=== PATIENT | female | born 1980 | race Caucasian/White ===

== ENCOUNTER → 2017-10-08 | Outpatient (CLI) | payer SELFPAY ==
[~2017-10-08] MED LIST: CETI10CA PO; HYDR-1231 PO; IBUP-1773 PO; OXYC-471 PO; POLY17PO23 PO; PREN-148 PO
--- NOTE | 2017-10-08 19:29 | Diagnostic Imaging Report ---
INDICATION: Size and dates. TECHNIQUE: Multiple real-time grayscale images were obtained over the gravid uterus. FINDINGS: There are no prior studies available for comparison. There is a single live fetus in cephalic presentation. heart motion is noted and a rate of 156 bpm is recorded. There are no obvious abnormalities identified; however, it may prove worthwhile to have a short-term (4-6 weeks) follow-up exam for a more sensitive evaluation of the anatomy. The placenta is anterior and there is no previa. The amniotic fluid volume is within normal limits. The growth parameters are fairly uniform. IMPRESSION: 1. There is a single live fetus of approximately 16 weeks 3 days gestation +/- 1 week. The EDC is March 22, 2018. 2. There are no obvious abnormalities identified. Recommendations as above. 3. The growth parameters are fairly uniform. Dictated on workstation # [id number]
== END ==
LOC: RAD 13:32
PROVIDERS: ATTEND Family Medicine
DX: Z34.82 Encounter for supervision of other normal pregnancy, second trimester (principal); Z3A.16 16 weeks gestation of pregnancy
CPT/HCPCS: 76805

== ENCOUNTER 2017-12-24 18:07 | Emergency (ER) | payer SELFPAY ==
[~2017-12-24] VITALS: Ht 154.9 cm; Wt 77.6 kg
--- OUTSIDE RECORDS SUMMARY | 2017-12-24 18:25 | XMS REPORT | Continuity of Care Document ---
Author Author [facility] Address Unknown Phone Unavailable Allergies Active Description Code Type Severity Reaction Onset Reported/Identified Relationship to Patient Clinical Status Yes No Known Drug Allergies [id number] Drug Allergy Unknown N/A 01/27/2014 Medications There is no data. Problems Date Dx Coded Attending Type Code Diagnosis Diagnosed By 07/06/2010 034.0 Streptococcal Sore Throat 07/06/2010 DEVYN MENDEZ STIVEN K 034.0 Streptococcal Sore Throat 07/06/2010 SHEPARD DO STIVEN K 034.0 Streptococcal Sore Throat 03/23/2011 599.0 Urinary Tract Infection Site Not Specified 03/23/2011 599.70 Hematuria Unspecified 03/23/2011 788.41 Urinary Frequency 03/23/2011 SHEPARD DO, STIVEN K 599.0 Urinary Tract Infection Site Not Specified 03/23/2011 SHEPARD DO, STIVEN K 599.70 Hematuria Unspecified 03/23/2011 SHEPARD DO, STIVEN K 788.41 Urinary Frequency 03/23/2011 SHEPARD DO STIVEN K 599.0 Urinary Tract Infection Site Not Specified 03/23/2011 SHEPARD DO STIVEN K 599.70 Hematuria Unspecified 03/23/2011 SHEPARD DO STIVEN K 788.41 Urinary Frequency 04/19/2012 784.0 HEADACHE 04/19/2012 V70.0 ROUTINE GENERAL MEDICAL EXAMINATION AT A HEALTH CARE FACILITY 04/19/2012 SHEPARD DO STIVEN K 784.0 HEADACHE 04/19/2012 SHEPARD DO, STIVEN K V70.0 ROUTINE GENERAL MEDICAL EXAMINATION AT A HEALTH CARE FACILITY 04/19/2012 SHEPARD DO STIVEN K 784.0 HEADACHE 04/19/2012 SHEPARD DO STIVEN K V70.0 ROUTINE GENERAL MEDICAL EXAMINATION AT A HEALTH CARE FACILITY 03/27/2013 466.0 BRONCHITIS, ACUTE 03/27/2013 SHEPARD RAFAEL MENDEZA K 466.0 BRONCHITIS, ACUTE 03/27/2013 SHEPARD DO STIVEN K 466.0 BRONCHITIS, ACUTE 2013 STIVEN SHEPARD DO K 461.9 SINUSITIS ACUTE 2013 STIVEN SHEPARD DO K 493.90 ASTHMA UNSPECIFIED 2013 STIVEN SHEPARD DO K 461.9 SINUSITIS ACUTE 2013 STIVEN SHEPARD DO K 493.90 ASTHMA UNSPECIFIED 07/17/2013 STIVEN SHEPARD DO K 382.9 OTITIS MEDIA 07/17/2013 DEVYN MENDEZ STIVEN K 786.2 COUGH 01/27/2014 ASHLEIGH JENNINGS POWER PRESS TENDER Ot 786.50 CHEST PAIN NOS 01/27/2014 ASHLEIGH JENNINGS POWER PRESS TENDER Ot 789.06 ABDOMINAL PAIN, EPIGASTRIC 05/12/2015 JUAN TATE, ALEXANDER Sharpe Ot 646.83 PREG COMPL NEC-ANTEPART 05/12/2015 ALEXANDER MARTINEZ MD Ot 789.00 ABDOMINAL PAIN, UNSPECIFIED SITE 08/15/2015 DEVYN MENDEZ STIVEN Kiko Ot O62.3 PRECIPITATE LABOR 08/15/2015 SHEPARD STIVEN K Ot O70.2 THIRD DEGREE PERINEAL LACERATION DURING 08/15/2015 DEVYN MENDEZ STIVEN Kiko Ot Z37.0 SINGLE LIVE 08/15/2015 DEVYN MENDEZ STIVEN Kiko Ot Z3A.40 40 WEEKS GESTATION OF 08/24/2015 ALEXANDER MARTINEZ MD Ot V22.1 08/24/2015 ALEXANDER MARTINEZ MD Ot V22.1 08/24/2015 ALEXANDER MARTINEZ MD Ot V22.1 10/26/2015 JAMA PHAM APRN Ot V22.1 10/26/2015 ALEXANDER MARTINEZ MD Ot V22.1 02/09/2016 JAMA PHAM APRN Ot V22.1 SUPERVIS OTH NORMAL PREG 02/09/2016 ALEXANDER MARTINEZ MD Ot V22.1 SUPERVIS OTH NORMAL PREG 02/09/2016 ALEXANDER MARTINEZ MD Ot V22.1 SUPERVIS OTH NORMAL PREG 10/08/2017 JAMA PHAM APRN Ot V22.1 SUPERVIS OTH NORMAL PREG 10/08/2017 ALEXANDER MARTINEZ MD Ot V22.1 SUPERVIS OTH NORMAL PREG 10/09/2017 JACKY MCGUIRE MD Ot Z34.82 ENCOUNTER FOR SUPRVSN OF NORMAL PREGNANC 10/09/2017 SHAYLA TATE, JACKY Baumann Ot Z3A.16 16 WEEKS GESTATION OF Procedures Code [place] [address] ROUTINE VENIPUNCTURE 07/17/2013 3681770 GFR CALC (RESULT ONLY) 07/17/2013 77054 CMP 07/17/2013 74688 MYCOPLASMA ANTIBODY 07/18/2013 2DRH2CS REPAIR ANAL SPHINCTER, PERCUTANEOUS APPR 08/14/2015 [id number] DELIVERY OF PRODUCTS OF CONCEPTION, EXTE 08/14/2015 Results There is no data. Encounters ACCT No. Visit Date/Time Discharge Status Pt. Type Provider Facility Loc./Unit Complaint [id number] 07/17/2013 10:25:00 07/17/2013 23:59:59 CLS Outpatient STIVEN SHEPARD DO [id number] 2013 10:45:00 2013 23:59:59 CLS Outpatient STIVEN SHEPARD DO [id number] 03/27/2013 16:09:00 Document Registration [id number] 10/08/2017 13:32:00 10/08/2017 23:59:59 CLS Outpatient JACKY MCGUIRE MD [facility] RAD Z34.80 NORMAL IN MULTIGRAVIDA [id number] 08/14/2015 00:01:00 08/15/2015 14:52:00 DIS Inpatient STIVEN SHEPARD DO [facility] LDRP VAG DELIVERY [id number] 05/11/2015 23:38:00 05/12/2015 10:05:00 DIS Outpatient ALEXANDER MARTINEZ MD [facility] WSo ABD PAIN [id number] 04/21/2015 10:26:00 04/21/2015 23:59:59 CLS Outpatient ALEXANDER MARTINEZ MD [facility] RAD ANATOMY [id number] 03/11/2015 12:05:00 03/11/2015 23:59:59 CLS Outpatient JAMA PHAM APRN [facility] RAD DATING [id number] 01/27/2014 17:34:00 01/27/2014 20:25:00 DIS Emergency ASHLEIGH JENNINGS POWER PRESS TENDER [facility] ER CHEST PAIN, L SIDE PAIN
[2017-12-24 18:54] LABS: BASOPHILS % (AUTO) 0 % (0-10); EOSINOPHILS # (AUTO) 0.7 10^3/uL (0.0-0.3); EOSINOPHILS % (AUTO) 5 % (0-10); HEMATOCRIT 34 % (35-52); HEMOGLOBIN 11.4 G/DL (11.5-16.0); LYMPHOCYTES # (AUTO) 2.4 X 10^3 (1.0-4.0); LYMPHOCYTES % (AUTO) 17 % (12-44); MEAN CORPUSCULAR HEMOGLOBIN 29 PG (25-34); MEAN CORPUSCULAR HGB CONC 34 G/DL (32-36); MEAN CORPUSCULAR VOLUME 85 FL (80-99); MEAN PLATELET VOLUME 9.6 FL (7.4-10.4); MONOCYTES # (AUTO) 0.7 X 10^3 (0.0-1.0); MONOCYTES % (AUTO) 5 % (0-12); NEUTROPHILS # (AUTO) 10.4 X 10^3 (1.8-7.8); NEUTROPHILS % (AUTO) 73 % (42-75); PLATELET COUNT 319 10^3/uL (130-400); RED BLOOD COUNT 3.97 10^6/uL (4.35-5.85); RED CELL DISTRIBUTION WIDTH 13.2 % (10.0-14.5); WHITE BLOOD COUNT 14.3 10^3/uL (4.3-11.0)
--- NOTE | 2017-12-24 18:56 | ED Chest Pain ---
General Chief Complaint: Chest Pain Stated Complaint: 26W OB: CP, L SHOULDER AND ARM PAIN Nursing Triage Note: pt reports l sided cp that radiate to her neck and l arm starting at 1800. pt is aprox 26 weeks preg. Nursing Sepsis Screen: No Definite Risk Source: patient Exam Limitations: no limitations History of Present Illness Date Seen by Provider: December 24, 2017 Time Seen by Provider: 18:40 Initial Comments PT ARRIVES VIA POV FROM HOME C/O LEFT UPPER CHEST PAIN--BEGAN 1 HOUR AGO, WHILE LAYING DOWN, RESOLVED JUST PRIOR TO ARRIVAL. HAS NOT TAKEN ANYTHING FOR PAIN PT IS 26 WEEKS , NO PROBLEMS WITH . LAST OB VISIT WITH DR. MCGUIRE WAS 12/05/17 PT HAS HAD FEELING OF SHORTNESS OF BREATH SINCE SHE BECAME AND IS NOT OCCURRING NOW PT HAS HISTORY OF ASTHMA, BUT HAS NOT HAD AN INHALER, AND NO WHEEZING NO PALPITATIONS NO DIZZINESS NO SWEATS HAS OCCASIONAL MILD SWELLING OF LEGS/ FEET, BUT NOT TODAY NO COUGH, FEVER OR RECENT ILLNESS HAS HAD SEASONAL ALLERGIES AND TAKES AYLEEN--HAS BEEN SNEEZING ALOT NO NAUSEA/VOMITING OR ABDOMINAL PAIN --HAS EATEN BREAKFAST AND LUNCH, BUT NOT DINNER, YET. NO VAGINAL BLEEDING OR DISCHARGE AB0 OB/PCP: DR. MCGUIRE AND [facility] Allergies and Home Medications Allergies Coded Allergies: No Known Drug Allergies (Unverified , 01/27/14) Home Medications Ibuprofen 600 Mg Tablet, 600 MG PO Q6H Prescribed by: STIVEN SHEPARD on 08/15/15 1121 Oxycodone HCl/Acetaminophen 1 Each Tablet, 1-2 TAB PO Q3H PRN for MODERATE TO SEVERE PAIN Prescribed by: STIVEN SHEPARD on 08/15/15 1121 Polyethylene Glycol 3350 17 Gm Powd.pack, 17 GM PO DAILY Prescribed by: STIVEN SHEPARD on 08/15/15 1121 Vit #76/Iron,Carb/FA 1 Each Tablet, 1 EACH PO DAILY, (Reported) Patient Home Medication List Home Medication List Reviewed: Yes Review of Systems Constitutional: no symptoms reported; No chills, No diaphoresis, No dizziness, No fever Respiratory: See HPI; Denies Cough, Denies Orthopnea; Shortness of Air Cardiovascular: See HPI, Chest Pain, Edema (PER HPI); Denies Irregular Heart Rate, Denies Lightheadedness, Denies Palpitations, Denies Syncope Gastrointestinal: No Symptoms Reported; Denies Abdominal Pain, Denies Nausea, Denies Vomiting Genitourinary: No Symptoms Reported; Denies Burning, Denies Flank Pain, Denies Pain Musculoskeletal: no symptoms reported; No back pain Skin: no symptoms reported Psychiatric/Neurological: No Symptoms Reported Endocrine: No Symptoms Reported Hematologic/Lymphatic: No Symptoms Reported Past Cauffww-Upuoaj-Gaydlm Hx Patient Social History Alcohol Use: Denies Use Recreational Drug Use: No Smoking Status: Never a Smoker Recent Foreign Travel: No Contact w/Someone Who Travel: No Recent Infectious Disease Expo: No Physical Abuse: No Sexual Abuse: No Mistreated: No Fear: No Immunizations Up To Date Tetanus Booster (TDap): Unknown Date of Influenza Vaccine: Jul 28, 2015 Past Medical History Surgeries: No Respiratory: Yes (HAS NOT HAD AN INHALER FOR A LONG TIME) Asthma Currently Using CPAP: No Currently Using BIPAP: No Cardiac: Yes (MURMUR A SMALL CHILD) Neurological: No : Yes Expected Date of Delivery: Apr 03, 2018 Hx : 4 Hx Para: 3 Hx Total # of Abortions (Sp): 0 Reproductive Disorders: No Sexually Transmitted Disease: No HIV/AIDS: No Genitourinary: No Gastrointestinal: No Musculoskeletal: No Endocrine: No HEENT: No Cancer: No Psychosocial: No Nursing Suicide Risk Score: 0 Integumentary: No Blood Disorders: No Adverse Reaction/Blood Tranf: No Family Medical History Diabetes mellitus (Mother) Hypertension (Mother) Physical Exam Vital Signs Vital Signs - First Documented 12/24/17 18:40 Temp 98.1 Pulse 73 Resp 18 B/P (MAP) 122/80 (94) Pulse Ox 100 O2 Delivery Room Air Capillary Refill : Less Than 3 Seconds General Appearance: WD/WN, Other (DOES NOT APPEAR TO BE IN ANY DISCOMFORT ) HEENT: PERRL/EOMI Neck: Full Range of Motion, Normal Inspection, Non Tender, Supple; No Carotid Bruit, No JVD Respiratory: Normal Breath Sounds, No Accessory Muscle Use, No Respiratory Distress, Other (LEFT UPPER CHEST VERY TENDER TO PALPATION--PALPATION REPRODUCES SYMPTOMS) Cardiovascular: Regular Rate, Rhythm, No Edema, No JVD, No Murmur, Normal Peripheral Pulses Gastrointestinal: Normal Bowel Sounds, No Organomegaly, No Pulsatile Mass, Non Tender, Soft Extremity: Normal Capillary Refill, Normal Inspection, Normal Range of Motion, Non Tender, No Calf Tenderness, No Pedal Edema Neurologic/Psychiatric: Alert, Oriented x3, No Motor/Sensory Deficits, Normal Mood/Affect, technical proposal writer II-XII Norm as Tested Skin: Normal Color, Warm/Dry; No Rash Progress/Results/Core Measures Results/Orders Lab Results Laboratory Tests Test 12/24/17 18:45 12/24/17 19:07 12/24/17 19:44 Range/Units White Blood Count 14.3 H 4.3-11.0 10^3/uL Red Blood Count 3.97 L 4.35-5.85 10^6/uL Hemoglobin 11.4 L 11.5-16.0 G/DL Hematocrit 34 L 35-52 % Mean Corpuscular Volume 85 80-99 FL Mean Corpuscular Hemoglobin 29 25-34 PG Mean Corpuscular Hemoglobin Concent 34 32-36 G/DL Red Cell Distribution Width 13.2 10.0-14.5 % Platelet Count 319 130-400 10^3/uL Mean Platelet Volume 9.6 7.4-10.4 FL Neutrophils (%) (Auto) 73 42-75 % Lymphocytes (%) (Auto) 17 12-44 % Monocytes (%) (Auto) 5 0-12 % Eosinophils (%) (Auto) 5 0-10 % Basophils (%) (Auto) 0 0-10 % Neutrophils # (Auto) 10.4 H 1.8-7.8 X 10^3 Lymphocytes # (Auto) 2.4 1.0-4.0 X 10^3 Monocytes # (Auto) 0.7 0.0-1.0 X 10^3 Eosinophils # (Auto) 0.7 H 0.0-0.3 10^3/uL Basophils # (Auto) 0.0 0.0-0.1 10^3/uL Neutrophils % (Manual) 67 % Lymphocytes % (Manual) 20 % Monocytes % (Manual) 5 % Eosinophils % (Manual) 8 % Basophils % (Manual) 0 % Band Neutrophils 0 % Blood Morphology Comment NORMAL Sodium Level 137 135-145 MMOL/L Potassium Level 3.9 3.6-5.0 MMOL/L Chloride Level 108 H 98-107 MMOL/L Carbon Dioxide Level 19 L 21-32 MMOL/L Anion Gap 10 5-14 MMOL/L Blood Urea Nitrogen 5 L 7-18 MG/DL Creatinine 0.57 L 0.60-1.30 MG/DL Estimat Glomerular Filtration Rate > 60 BUN/Creatinine Ratio 9 Glucose Level 77 70-105 MG/DL Calcium Level 9.1 8.5-10.1 MG/DL Magnesium Level 2.0 1.8-2.4 MG/DL Total Bilirubin 0.2 0.1-1.0 MG/DL Aspartate Amino Transf (AST/SGOT) 16 5-34 U/L Alanine Aminotransferase (ALT/SGPT) 7 0-55 U/L Alkaline Phosphatase 67 40-136 U/L Troponin I < 0.30 <0.30 NG/ML Total Protein 7.8 6.4-8.2 GM/DL Albumin 3.5 3.2-4.5 GM/DL Amylase Level 277 H 25-125 U/L Lipase 29 8-78 U/L Prothrombin Time 13.8 12.2-14.7 SEC INR Comment 1.1 0.8-1.4 Activated Partial Thromboplast Time 29 24-35 SEC Urine Color YELLOW Urine Clarity CLEAR Urine pH 6 5-9 Urine Specific Kennard 1.010 L 1.016-1.022 Urine Protein NEGATIVE NEGATIVE Urine Glucose (UA) NEGATIVE NEGATIVE Urine Ketones NEGATIVE NEGATIVE Urine Nitrite NEGATIVE NEGATIVE Urine Bilirubin NEGATIVE NEGATIVE Urine Urobilinogen NORMAL NORMAL MG/DL Urine Leukocyte Esterase 1+ H NEGATIVE Urine RBC (Auto) 2+ H NEGATIVE Urine RBC RARE /HPF Urine WBC 0-2 /HPF Urine Squamous Epithelial Cells 2-5 /HPF Urine Crystals NONE /LPF Urine Bacteria TRACE /HPF Urine Casts NONE /LPF Urine Mucus NEGATIVE /LPF Urine Culture Indicated NO My Orders Orders - CHON AG DO Saline Lock/Iv-Start (12/24/17 18:43) Ekg Tracing (12/24/17 18:43) Heart Tones (12/24/17 18:43) Monitor-Rhythm Ecg Trace Only (12/24/17 18:43) Amylase (12/24/17 18:43) Cbc With Automated Diff (12/24/17 18:43) Comprehensive Metabolic Panel (12/24/17 18:43) Lipase (12/24/17 18:43) Magnesium (12/24/17 18:43) Protime With Inr (12/24/17 18:43) Partial Thromboplastin Time (12/24/17 18:43) Troponin I (12/24/17 18:43) Ua Culture If Indicated (12/24/17 18:43) Manual Differential (12/24/17 18:45) Vital Signs/I&O 12/24/17 12/24/17 12/24/17 18:40 18:40 20:13 Temp 98.1 Pulse 73 80 Resp 18 24 B/P (MAP) 122/80 (94) 105/82 Pulse Ox 100 100 O2 Delivery Room Air Blood Pressure Mean: 94 Progress Progress Note : Progress Note PAIN OR ANY OTHER SYMPTOMS DURING ER STAY FHR 140 Initial ECG Impression Date: December 24, 2017 Initial ECG Impression Time: 19:00 Initial ECG Rate: 77 Initial ECG Rhythm: Normal Sinus Initial ECG Impression: Normal Initial ECG Comparisson: No Previous ECG Available Departure Impression Primary Impression: Left-sided chest wall pain Additional Impression: 26 weeks gestation of Disposition: 01 HOME, SELF-CARE Condition: Improved Departure-Patient Inst. Referrals: JACKY MCGUIRE MD (PCP/Family) Primary Care Physician Patient Instructions: Chest Pain That Is Not Caused by the Heart (DC) Add. Discharge Instructions: TAKE TYLENOL 1-2 PILLS EVERY 4-6 HOURS NEEDED FOR PAIN FOLLOW UP WITH DR. MCGUIRE IN 2-3 DAYS IF NO BETTER, OR SOONER IF WORSE All discharge instructions reviewed with patient and/or family. Voiced understanding. Images Torso/Trunk 1 - Moderate, Tenderness CHON AG DO December 24, 2017 18:56
[2017-12-24 19:12] LABS: BAND NEUTROPHILS 0 %; BASOPHILS % (MANUAL) 0 %; EOSINOPHILS % (MANUAL) 8 %; LYMPHOCYTES % (MANUAL) 20 %; MONOCYTES % (MANUAL) 5 %; NEUTROPHILS % (MANUAL) 67 %; RBC MORPH NORMAL
[2017-12-24 19:13] LABS: ALANINE AMINOTRANSFERASE 7 U/L (0-55); ALBUMIN 3.5 GM/DL (3.2-4.5); ALKALINE PHOSPHATASE 67 U/L (40-136); AMYLASE 277 U/L (25-125); BILIRUBIN,TOTAL 0.2 MG/DL (0.1-1.0); BUN/CREATININE RATIO 9; CALCIUM 9.1 MG/DL (8.5-10.1); CARBON DIOXIDE 19 MMOL/L (21-32); CHLORIDE 108 MMOL/L (98-107); CREATININE SERUM 0.57 MG/DL (0.60-1.30); GFR ESTIMATED > 60; GLUCOSE 77 MG/DL (70-105); LIPASE 29 U/L (8-78); POTASSIUM 3.9 MMOL/L (3.6-5.0); SODIUM 137 MMOL/L (135-145); TOTAL PROTEIN 7.8 GM/DL (6.4-8.2)
[2017-12-24 19:25] LABS: INR 1.1 (0.8-1.4); PROTHROMBIN TIME PATIENT 13.8 SEC (12.2-14.7)
[2017-12-24 19:50] LABS: BILIRUBIN,URINE NEGATIVE (NEGATIVE); CLARITY,URINE CLEAR; COLOR,URINE YELLOW; GLUCOSE, URINE (UA) NEGATIVE (NEGATIVE); KETONES,URINE NEGATIVE (NEGATIVE); LEUKOCYTE ESTERASE ,URINE 1+ (NEGATIVE); NITRITE,URINE NEGATIVE (NEGATIVE); PH,URINE 6 (5-9); PROTEIN,URINE NEGATIVE (NEGATIVE); UROBILINOGEN,URINE NORMAL (NORMAL)
[2017-12-24 19:57] LABS: BACTERIA,URINE TRACE /HPF; RBC,URINE RARE /HPF; WBC,URINE 0-2 /HPF
[2017-12-24 20:13] VITALS: BP 105/82
== END 2017-12-24 20:14 | disposition home or self-care (01) ==
LOC: EDUNIT# 18:07 → ER 18:10
DX: O99.89 Other specified diseases and conditions complicating pregnancy, childbirth and the puerperium (principal); R07.89 Other chest pain; O99.512 Diseases of the respiratory system complicating pregnancy, second trimester; J45.909 Unspecified asthma, uncomplicated; Z3A.26 26 weeks gestation of pregnancy
CPT/HCPCS: 36415; 80053; 81000; 82150; 83690; 83735; 84484; 85007; 85027; 85610; 85730; 93005; 93041

== ENCOUNTER → 2018-02-18 | Outpatient (CLI) | payer SELFPAY | LOC: LAB 10:50 | PROVIDERS: ATTEND Family Medicine | DX: Z34.93 Encounter for supervision of normal pregnancy, unspecified, third trimester (principal) ==

== ENCOUNTER → 2018-02-20 | Outpatient (CLI) | payer SELFPAY | LOC: LAB 10:41 | PROVIDERS: ATTEND Family Medicine | DX: Z34.93 Encounter for supervision of normal pregnancy, unspecified, third trimester (principal) | CPT/HCPCS: 82962 ==

== ENCOUNTER 2018-03-12 00:50 | Inpatient (IN) | payer OTHER ==
[2018-03-12] VITALS (31 sets, daily range): BP systolic 100–180; BP diastolic 67–114
[~2018-03-12] VITALS: Ht 152.4 cm; Wt 84.0 kg
[2018-03-12] MEDS ORDERED: D5 LR IV SOLUTION 1,000 ML IV SCH (01:21)
[2018-03-12] MEDS ORDERED: MEPIVACAINE (CARBOCAINE) 2% 50 ML VIAL INJ PRN (01:30)
[2018-03-12 02:17] LABS: BASOPHILS % (AUTO) 0 % (0-10); EOSINOPHILS # (AUTO) 0.1 10^3/uL (0.0-0.3); EOSINOPHILS % (AUTO) 1 % (0-10); HEMATOCRIT 36 % (35-52); LYMPHOCYTES # (AUTO) 2.2 X 10^3 (1.0-4.0); LYMPHOCYTES % (AUTO) 15 % (12-44); MEAN CORPUSCULAR HEMOGLOBIN 28 PG (25-34); MEAN CORPUSCULAR HGB CONC 34 G/DL (32-36); MEAN CORPUSCULAR VOLUME 83 FL (80-99); MEAN PLATELET VOLUME 10.7 FL (7.4-10.4); MONOCYTES # (AUTO) 0.9 X 10^3 (0.0-1.0); MONOCYTES % (AUTO) 6 % (0-12); NEUTROPHILS # (AUTO) 10.9 X 10^3 (1.8-7.8); NEUTROPHILS % (AUTO) 77 % (42-75); PLATELET COUNT 257 10^3/uL (130-400); RED BLOOD COUNT 4.29 10^6/uL (4.35-5.85); WHITE BLOOD COUNT 14.1 10^3/uL (4.3-11.0)
[2018-03-12] MEDS ORDERED: OXYTOCIN/NORMAL SALINE 500 ML IV ONE (04:54)
--- NOTE | 2018-03-12 05:08 | History & Physical-OB ---
OB - Chief Complaint & HPI Date/Time Date of Admission: Date of Admission: Mar 12, 2018 at 01:34 Time Seen by Provider: 05:00 Chief Complaint/History OB-Reason for Admission/Chief: Onset of Labor Hx : 4 Hx Para: 3 Expected Date of Delivery: Mar 21, 2018 Gestational Age in Weeks: 38 Gestational Age in Days: 5 Admission Nurse Assessment Rev: Yes Allergies and Home Medications Allergies Coded Allergies: No Known Drug Allergies (Unverified , 01/27/14) Home Medications Ibuprofen 600 Mg Tablet, 600 MG PO Q6H Prescribed by: STIVEN SHEPARD on 08/15/15 1121 Oxycodone HCl/Acetaminophen 1 Each Tablet, 1-2 TAB PO Q3H PRN for MODERATE TO SEVERE PAIN Prescribed by: STIVEN SHEPARD on 08/15/15 1121 Polyethylene Glycol 3350 17 Gm Powd.pack, 17 GM PO DAILY Prescribed by: STIVEN SHEPARD on 08/15/15 1121 Vit #76/Iron,Carb/FA 1 Each Tablet, 1 EACH PO DAILY, (Reported) Patient Home Medication List Home Medication List Reviewed: Yes OB - History Hx of Present Care: Yes Ultrasounds: Normal mid trimester US Obstetrical Complications: None Medical Complications: None Obstetrical History Hx : 4 Hx Para: 3 Hx Total # of Abortions (Spona: 0 Hx Multiple Gestation: No Hx Stillbirth: No Hx Complication: No Hx Induced Hypertens: No Hx Maternal Gestational Diabet: No Delivery History Hx Dystocia: No Hx Large For Gestational Age I: No Hx Small for Gestational Age I: No Hx Section: No Hx Vaginal Delivery Post C-Sec: No Hx Blood Disorders: No Adverse Rxn to Tranfusion: No Patient Past Medical History denies PMH Social History/Family History HIV/AIDS: No Recent Infectious Disease Expo: No Sexually Transmitted Disease: No Alcohol Use: Denies Use Recreational Drug Use: No Immunizations Tetanus Booster (TDap): Unknown Date of Influenza Vaccine: Jul 28, 2015 OB - Admission Exam Physical Exam Vitals: Vital Signs 03/12/18 03/12/18 02:30 04:00 Temp 97.2 Pulse 75 Resp 18 B/P (MAP) 146/94 (111) O2 Delivery Room Air HEENT: Moist Membranes Heart: Rhythm Normal Abdomen: Gravid Cervical Dilatation: 8cm Effacement: 75% Membranes: Intact Heart Rate: 130's Accelerations: Accelerations Present Short Term Variability: Present Media Operator Variability: Average (6-25) Intensity: Moderate Labs Laboratory Tests Test 03/12/18 02:05 Range/Units White Blood Count 14.1 H 4.3-11.0 10^3/uL Red Blood Count 4.29 L 4.35-5.85 10^6/uL Hemoglobin 12.0 11.5-16.0 G/DL Hematocrit 36 35-52 % Mean Corpuscular Volume 83 80-99 FL Mean Corpuscular Hemoglobin 28 25-34 PG Mean Corpuscular Hemoglobin Concent 34 32-36 G/DL Red Cell Distribution Width 14.0 10.0-14.5 % Platelet Count 257 130-400 10^3/uL Mean Platelet Volume 10.7 H 7.4-10.4 FL Neutrophils (%) (Auto) 77 H 42-75 % Lymphocytes (%) (Auto) 15 12-44 % Monocytes (%) (Auto) 6 0-12 % Eosinophils (%) (Auto) 1 0-10 % Basophils (%) (Auto) 0 0-10 % Neutrophils # (Auto) 10.9 H 1.8-7.8 X 10^3 Lymphocytes # (Auto) 2.2 1.0-4.0 X 10^3 Monocytes # (Auto) 0.9 0.0-1.0 X 10^3 Eosinophils # (Auto) 0.1 0.0-0.3 10^3/uL Basophils # (Auto) 0.0 0.0-0.1 10^3/uL OB - Assessment/Plan/Diagnosis Assessment Assessment: active labor (at 38w5d) Admission Dx IUP at term 38w5d Admission Status: Inpatient Order (span 2 midnights) Reason for Inpatient Admission: L&D Plan Plan: Expectant Management JACKY MCGUIRE MD Mar 12, 2018 05:08
[2018-03-12] MEDS ORDERED: LIDOCAINE 1% INJ 20 ML 20 ML VIAL ONE (06:03)
[2018-03-12] MEDS: OXYTOCIN/NORMAL SALINE 500 ML IV SCH ×2 (06:15→08:09)
--- NOTE | 2018-03-12 06:37 | OB Labor & Delivery Record ---
L&D History Date of Service Date of Service: Mar 12, 2018 History Expected Date of Delivery: Mar 21, 2018 Gestational Age in Weeks: 38 Hx : 4 Hx Para: 3 Complications Events: Routine care Operative Indications (Cesarea: N/A-Vaginal Delivery Intrapartal Events: None (with increased maternal bp transient) L&D Stage1 Stage One Onset of Labor - Date: Mar 12, 2018 Onset of Labor - Time: 01:00 Monitors and Tracing Monitor Mode: External Heart Rate: 140 Monitor Accelerations: Uniform Monitor Decelerations: Variable Station: 0 Long-Term Variability: Average (6-10) Short Term Variability: Present Presentation: Vertex Vital Signs VS - Last 72 Hours, by Label 03/12/18 03/12/18 03/12/18 03/12/18 01:05 01:06 01:35 02:30 Temp 97.8 97.2 Pulse 88 78 74 Resp 18 18 18 B/P (MAP) 142/94 (110) 144/92 (109) 130/88 (102) 135/82 (99) O2 Delivery Room Air Room Air Room Air 03/12/18 03/12/18 03/12/18 03/12/18 03:00 03:15 03:30 03:45 Pulse 77 80 77 85 Resp 18 18 18 18 B/P (MAP) 149/85 (106) 148/88 (108) 137/84 (101) 139/94 (109) O2 Delivery Room Air Room Air Room Air Room Air 03/12/18 03/12/18 03/12/18 03/12/18 04:00 04:15 04:30 04:45 Temp 97.3 Pulse 75 83 83 79 Resp 18 18 18 18 B/P (MAP) 146/94 (111) 150/92 (111) 149/95 (113) 138/79 (98) O2 Delivery Room Air Room Air Room Air Room Air 03/12/18 03/12/18 05:15 05:16 Pulse 82 Resp 18 B/P (MAP) 174/95 (121) 165/101 (122) O2 Delivery Room Air Signs of Distress by FHT Signs of Distress no Rupture of Membranes Spontaneous Ruture of Membrane: No Amniotic Membrane Rupture Time: 0510 Amniotic Membrane Fluid Desc.: Clear L&D Stage2 Stage Two Stage II Date: Mar 12, 2018 Stage II Time: 06:10 Monitors and Tracing Monitor Mode: Internal Heart Rate: 140 Monitor Accelerations: Uniform Monitor Decelerations: Early Long-Term Variability: Average (6-10) Short Term Variability: Present Position: Left Occiput Anterior Presentation: Vertex Signs of Distress by FHT Signs of Distress no Cord Descript/Complications Cord Vessel Description: 3 Vessels Delivery Type Delivery Method: Spontaneous Vaginal Anterior Shoulder: Left Episiotomy/Perineal Laceration Laceraction(s)/Extensions: Yes Episiotomy Description: Periurethral Extnsion/lac, 1st degree Sutures Used: Vicryl Condition of Infant Delivery 1 minute Comment: 8 5 minute Comment: 9 Condition of Condition of : Living Exam: No Observed Abnormalities Resuscitation Resuscitation: N/A - Spontaneous Resp L&D Stage3 Stage Three Stage III Date: Mar 12, 2018 Stage III Time: 06:13 Pictocin Pitocin ml/hr: 125 Placenta Delivery Placenta Delivery: Spontaneous Delivery Summary Summary Estimated blood loss (mL): 200 Condition of Delivery Examined: Cervix Examined Post Hemorrhage: No Intervention Required none JACKY MCGUIRE MD Mar 12, 2018 06:37
[2018-03-12] MEDS ORDERED: MEASLES,MUMPS,RUBELLA 1 EA INJ SQ ONE (06:45)
[2018-03-12] MEDS ORDERED: HYDROcodone/APAP 5 MG/325 MG (LORTAB) TAB PO PRN (06:45)
[2018-03-12] MEDS ORDERED: TETANUS,DIPTH,PERTUSS P/F (BOOSTRIX) 0.5 ML VIAL IM ONE (06:45)
[2018-03-12] MEDS ORDERED: WITCH HAZEL(TUCKS) 40 EA JAR TOP PRN (06:45)
[2018-03-12] MEDS ORDERED: BENZOCAINE/MENTHOL (DERMOPLAST) 56 ML CAN TP PRN (06:45)
[2018-03-12] MEDS: IBUPROFEN 600 MG (MOTRIN) TAB PO SCH ×3 (07:40→20:23)
[2018-03-12] MEDS: CATHETER FLUSH 10 ML SYR IV SCH ×2 (22:16→22:19)
[2018-03-13] MEDS: IBUPROFEN 600 MG (MOTRIN) TAB PO SCH ×2 (02:31→08:43)
[2018-03-13 03:27] VITALS: BP 100/70
[2018-03-13 05:40] LABS: BASOPHILS % (AUTO) 0 % (0-10); EOSINOPHILS # (AUTO) 0.2 10^3/uL (0.0-0.3); EOSINOPHILS % (AUTO) 1 % (0-10); HEMATOCRIT 31 % (35-52); HEMOGLOBIN 10.6 G/DL (11.5-16.0); LYMPHOCYTES # (AUTO) 2.7 X 10^3 (1.0-4.0); LYMPHOCYTES % (AUTO) 18 % (12-44); MEAN CORPUSCULAR HEMOGLOBIN 29 PG (25-34); MEAN CORPUSCULAR HGB CONC 34 G/DL (32-36); MEAN CORPUSCULAR VOLUME 85 FL (80-99); MEAN PLATELET VOLUME 10.6 FL (7.4-10.4); MONOCYTES # (AUTO) 0.7 X 10^3 (0.0-1.0); MONOCYTES % (AUTO) 5 % (0-12); NEUTROPHILS % (AUTO) 75 % (42-75); PLATELET COUNT 250 10^3/uL (130-400); RED BLOOD COUNT 3.65 10^6/uL (4.35-5.85); RED CELL DISTRIBUTION WIDTH 13.7 % (10.0-14.5); WHITE BLOOD COUNT 14.6 10^3/uL (4.3-11.0)
[2018-03-13] MEDS: CATHETER FLUSH 10 ML SYR IV SCH (06:48)
--- NOTE | 2018-03-13 07:28 | Discharge Summary ---
Diagnosis/Chief Complaint Date of Admission Mar 12, 2018 at 01:34 Date of Discharge March 13, 2018 Admission Diagnosis Admission Diagnosis 1. IUP at 38w5d gestation Discharge Diagnosis 1. IUP at 38w5d gestation Chief Complaint/HPI Chief Complaint/HPI 37 yo G4now T4L4 female who presented to L&D in active labor in the am of March 12, 2018. Discharge Summary-OBS Procedures 1. 2. Repair of first degree perineal laceration Discharge Physical Examination Allergies: Coded Allergies: No Known Drug Allergies (Unverified , 01/27/14) Vitals & I&Os Vital Sign - Last 12Hours Date Time Temp Pulse Resp B/P (MAP) Pulse Ox O2 Delivery O2 Flow Rate FiO2 03/13/18 03:27 97.7 73 16 100/70 (80) 98 Room Air General Appearance: No Acute Distress Respiratory: Clear to Auscultation Cardiovascular: Regular Rate Abdominal: Soft (with uterus firm) Hospital Course Patient was admitted in the morning of March 12, 2018 in active labor. She was noted to be 8 cm dilated upon presentation. Patient was at 38 weeks 5 days gestation. Her membranes were intact at that time. Her care was uneventful. Following admission she underwent amniotomy with placement of scalp electrode. She quickly went on to completion and delivered a term viable female. received Apgars of 8 at 1 minute and 9 at 5 minutes. There was a first-degree perineal laceration which was repaired with Vicryl. Following delivery she underwent routine care orders. She had no complications during the remainder of hospital stay. Her hemoglobin in the morning of March 13 was noted to be 10.6 compared to 12.0 from admission. She had no complaints had no significant vaginal bleeding. She was ambulatory and tolerating regular diet. She was felt ready for dismissal during the late morning of March 13, 2018. She will follow up in 6 weeks. Labs Laboratory Tests 03/13/18 05:14: White Blood Count 14.6H, Red Blood Count 3.65L, Hemoglobin 10.6L, Hematocrit 31L , Mean Corpuscular Volume 85, Mean Corpuscular Hemoglobin 29, Mean Corpuscular Hemoglobin Concent 34, Red Cell Distribution Width 13.7, Platelet Count 250, Mean Platelet Volume 10.6H, Neutrophils (%) (Auto) 75, Lymphocytes (%) (Auto) 18 , Monocytes (%) (Auto) 5, Eosinophils (%) (Auto) 1, Basophils (%) (Auto) 0, Neutrophils # (Auto) 11.0H, Lymphocytes # (Auto) 2.7, Monocytes # (Auto) 0.7, Eosinophils # (Auto) 0.2, Basophils # (Auto) 0.0 Discharge Instructions to patient/family Please see electronic discharge instructions given to patient. Discharge Medications Reviewed and agree with Discharge Medication list on patient's Discharge Instruction sheet Clinical Quality Measures DVT/VTE Risk/Contraindication: Risk Factor Score Per Nursin RFS Level Per Nursing on Admit: 1=Low/No VTE PPX JACKY MCGUIRE MD Mar 13, 2018 07:28
--- NOTE | 2018-03-13 07:32 | Discharge Inst-Women's Service ---
Discharge Inst-Women's Serv Depart Medication/Instructions New, Converted or Re-Newed RX: Other (continue vitamin for 6 weeks) Consults/Follow Up Additional Follow Up: Yes (Dr Mcguire at [facility] in 6 weeks) Activity Driving Instructions: No Driving for 1 Week Nothing Inside Vagina: No [place] (for 6 weeks.) Return to The Hospital For: as below Symptoms to Report to : Bleeding Excessive, Pain Increased, Fever Over 101 Degrees F, Vaginal Discharge Foul For Any Problems or Questions: Contact Your Physician JACKY MCGUIRE MD Mar 13, 2018 07:32
[2018-03-13 08:00] VITALS: BP 112/68
[2018-03-13 12:00] VITALS: BP 110/72
== END 2018-03-13 14:25 | disposition home or self-care (01) | DRG 775 ==
LOC: LDRP 00:50 → WSo 00:50 → LDRP 01:34
PROVIDERS: ADMIT Family Medicine; ATTEND Family Medicine
PROC: 10E0XZZ Delivery of Products of Conception, External Approach (ICD-10-PCS; principal; 2018-03-12)
PROC: 0HQ9XZZ Repair Perineum Skin, External Approach (ICD-10-PCS; 2018-03-12)
DX: O70.0 First degree perineal laceration during delivery (principal); Z3A.38 38 weeks gestation of pregnancy; Z37.0 Single live birth
CPT/HCPCS: 36415; 85025; 86850; 86900; 86901; 99212

== ENCOUNTER 2020-11-04 14:30 | Observation (INO) | payer OTHER, MEDICAID ==
[2020-11-04 15:15] VITALS: BP 148/84
[2020-11-04 15:25] LABS: BILIRUBIN,URINE NEGATIVE (NEGATIVE); CLARITY,URINE CLEAR; COLOR,URINE YELLOW; GLUCOSE, URINE (UA) NEGATIVE (NEGATIVE); KETONES,URINE NEGATIVE (NEGATIVE); LEUKOCYTE ESTERASE ,URINE NEGATIVE (NEGATIVE); NITRITE,URINE NEGATIVE (NEGATIVE); PROTEIN,URINE 1+ (NEGATIVE)
[2020-11-04 15:37] LABS: BACTERIA,URINE NEGATIVE /HPF; SQUAMOUS EPITHELIAL CELL,UR 0-2 /HPF
[2020-11-04] MEDS ORDERED: oxyCODONE/APAP 10/325MG (PERCOCET 10) TABLET PO ONE ×2 (15:43→15:45)
[2020-11-04] MEDS ORDERED: NS IV 1000 ML 1,000 ML ONE (16:05)
[2020-11-04] MEDS ORDERED: NS IV 1000 ML 1,000 ML IV SCH (16:15)
[2020-11-04 17:45] VITALS: BP 183/96
[2020-11-04 17:48] VITALS: BP 170/91
[2020-11-04] MEDS ORDERED: D5 LR IV SOLUTION 1,000 ML IV ONE (17:57)
[2020-11-04 19:28] VITALS: BP 137/97
[2020-11-04 20:37] VITALS: BP 144/92
--- NOTE | 2020-11-04 21:36 | History & Physical-OB ---
OB - Chief Complaint & HPI Date/Time Date of Admission: Date of Admission: Date seen by a Provider: Nov 04, 2020 Time Seen by a Provider: 16:00 Chief Complaint/History OB-Reason for Admission/Chief: Hx : 5 Hx Para: 4 Expected Date of Delivery: Oct 11, 2020 Gestational Age in Weeks: 36 Gestational Age in Days: 1 History of Labs GBS positive by vaginal culture on October 05, 2020 Other Patient was found to have elevated systolic and diastolic blood pressure in the [facility] clinic today. She is sent to the hospital for laboratory and urine/protein creatinine ratio Allergies and Home Medications Allergies Coded Allergies: No Known Drug Allergies (Unverified , 01/27/14) Home Medications Vit #76/Iron,Carb/FA 1 Each Tablet, 1 EACH PO DAILY, (Reported) Patient Home Medication List Home Medication List Reviewed: Yes OB - History Hx of Present Care: Yes Ultrasounds: Normal mid trimester US (Only 1 ultrasound performed 28.6 weeks gestation) Obstetrical Complications: Other ( induced hypertension) Medical Complications: None Obstetrical History Hx : 5 Hx Para: 4 Hx Total # of Abortions (Spona: 0 Hx Multiple Gestation: No Hx Stillbirth: No Hx Complication: No Hx Induced Hypertens: No Hx Maternal Gestational Diabet: No Delivery History Hx Dystocia: No Hx Large For Gestational Age I: No Hx Small for Gestational Age I: No Hx Section: No Hx Vaginal Delivery Post C-Sec: No Hx Blood Disorders: No Adverse Rxn to Tranfusion: No Patient Past Medical History denies PMH Social History/Family History Alcohol Use: Denies Use Recreational Drug Use: No 2nd Hand Smoke Exposure: No Immunizations Tetanus Booster (TDap): Unknown Date of Influenza Vaccine: Jul 28, 2015 OB - Admission Exam Physical Exam Vitals: Vital Signs 11/04/20 11/04/20 15:15 17:48 Temp 37.1 Pulse 76 Resp 18 B/P (MAP) 170/91 (117) Pulse Ox 99 O2 Delivery Room Air HEENT: Moist Membranes Heart: Rhythm Normal Lungs: Clear Abdomen: Gravid Extremities: Normal Reflexes: Normal Labs Laboratory Tests Test 11/04/20 15:00 Range/Units Urine Color YELLOW Urine Clarity CLEAR Urine pH 6.0 5-9 Urine Specific [place] 1.025 H 1.016-1.022 Urine Protein 1+ H NEGATIVE Urine Glucose (UA) NEGATIVE NEGATIVE Urine Ketones NEGATIVE NEGATIVE Urine Nitrite NEGATIVE NEGATIVE Urine Bilirubin NEGATIVE NEGATIVE Urine Urobilinogen 1.0 < = 1.0 MG/DL Urine Leukocyte Esterase NEGATIVE NEGATIVE Urine RBC (Auto) 1+ H NEGATIVE Urine RBC 2-5 H /HPF Urine WBC NONE /HPF Urine Squamous Epithelial Cells 0-2 /HPF Urine Crystals NONE /LPF Urine Bacteria NEGATIVE /HPF Urine Casts NONE /LPF Urine Mucus NEGATIVE /LPF Urine Culture Indicated NO OB - Assessment/Plan/Diagnosis Assessment Assessment: observation Admission Dx 1. IUP at 36 weeks 2. PIH/mild pre-eclampsia 3. L sided abdominal pain. sensitive to touch ? urolithiasis possible. Admission Status: Observation Reason for Inpatient Admission: further monitoring of blood pressure. further monitoring of her L sided abdominal pain Plan Plan: Expectant Management JACKY MCGUIRE MD Nov 04, 2020 21:36
[2020-11-05] VITALS (7 sets, daily range): BP systolic 135–172; BP diastolic 85–93
[2020-11-05] MEDS ORDERED: oxyCODONE/APAP 10/325MG (PERCOCET 10) TABLET PO ONE (01:15)
[2020-11-05] MEDS: oxyCODONE/APAP 10/325MG (PERCOCET 10) TABLET PO PRN ×2 (01:23→09:52)
[2020-11-05] MEDS ORDERED: D5 LR IV SOLUTION 1,000 ML IV ONE (04:01)
[2020-11-05] MEDS ORDERED: D5 LR IV SOLUTION 1,000 ML IV SCH (04:15)
--- NOTE | 2020-11-05 07:12 | Progress Note ---
Subjective Subjective/Events-last exam Rested overnight. BP last evening borderline. L sided pain less. Objective Exam Last Set of Vital Signs Vital Signs Date Time Temp Pulse Resp B/P (MAP) Pulse Ox O2 Delivery O2 Flow Rate FiO2 11/05/20 07:00 37.0 63 18 136/86 (103) Room Air 11/04/20 20:37 99 Capillary Refill : Less Than 3 Seconds Lungs: Clear to Auscultation Heart: Regular Rate Other physical findings cervix: 1 1/2 cm dilated, 50%, vtx Results/Procedures Lab Laboratory Tests 11/04/20 15:00: Urine Color YELLOW, Urine Clarity CLEAR, Urine pH 6.0, Urine Specific [place] 1.025H, Urine Protein 1+H, Urine Glucose (UA) NEGATIVE, Urine Ketones NEGATIVE, Urine Nitrite NEGATIVE, Urine Bilirubin NEGATIVE, Urine Urobilinogen 1.0, Urine Leukocyte Esterase NEGATIVE, Urine RBC (Auto) 1+H, Urine RBC 2-5H, Urine WBC NONE, Urine Squamous Epithelial Cells 0-2, Urine Crystals NONE, Urine Bacteria NEGATIVE, Urine Casts NONE, Urine Mucus NEGATIVE, Urine Culture Indicated NO Assessment/Plan Assessment/Plan Admission Status: Observation Assessment & Plan 1. IUP at 36 weeks 2. PIH/mild pre-eclampsia -recheck labs (cbc, chem 14, and urine protein/cr ratio) this am -check OB US Addendum: -OB US agreed with 36w2d for gestational age -labs stable. urine protein/cr ratio improved to less than 0.3 -will allow to go home with [facility] bedrest. She has appt with Dr Tripathi on November 09, 2020. She will return if any headaches, swelling or cramping. 3. L sided abdominal pain. sensitive to touch ? urolithiasis possible. -appears overall improved JACKY MCGUIRE MD Nov 05, 2020 07:12
[2020-11-05 07:57] LABS: BASOPHILS # (AUTO) 0.1 10^3/uL (0.0-0.1); BASOPHILS % (AUTO) 1 % (0-10); EOSINOPHILS # (AUTO) 0.2 10^3/uL (0.0-0.3); EOSINOPHILS % (AUTO) 1 % (0-10); HEMATOCRIT 33 % (35-52); LYMPHOCYTES # (AUTO) 2.8 10^3/uL (1.0-4.0); LYMPHOCYTES % (AUTO) 24 % (12-44); MEAN CORPUSCULAR HEMOGLOBIN 25 pg (25-34); MEAN CORPUSCULAR HGB CONC 31 g/dL (32-36); MEAN CORPUSCULAR VOLUME 83 fL (80-99); MEAN PLATELET VOLUME 10.2 fL (9.0-12.2); MONOCYTES # (AUTO) 0.8 10^3/uL (0.0-1.0); MONOCYTES % (AUTO) 7 % (0-12); NEUTROPHILS # (AUTO) 8.1 10^3/uL (1.8-7.8); NEUTROPHILS % (AUTO) 67 % (42-75); PLATELET COUNT 318 10^3/uL (130-400); WHITE BLOOD COUNT 12.1 10^3/uL (4.3-11.0)
[2020-11-05 08:08] LABS: CHLORIDE 107 MMOL/L (98-107); POTASSIUM 3.8 MMOL/L (3.6-5.0); SODIUM 134 MMOL/L (135-145)
[2020-11-05 08:09] LABS: CALCIUM 8.7 MG/DL (8.5-10.1)
[2020-11-05 08:10] LABS: GLUCOSE 95 MG/DL (70-105)
[2020-11-05 08:11] LABS: CARBON DIOXIDE 18 MMOL/L (21-32)
[2020-11-05 08:12] LABS: BILIRUBIN,TOTAL 0.3 MG/DL (0.1-1.0)
[2020-11-05 08:13] LABS: ALKALINE PHOSPHATASE 130 U/L (40-136)
[2020-11-05 08:14] LABS: CREATININE SERUM 0.57 MG/DL (0.60-1.30); GFR ESTIMATED > 60
[2020-11-05 08:15] LABS: BUN/CREATININE RATIO 9
[2020-11-05 08:17] LABS: ALANINE AMINOTRANSFERASE 7 U/L (0-55)
--- NOTE | 2020-11-05 09:56 | Diagnostic Imaging Report ---
INDICATION: -induced hypertension, assess growth. TECHNIQUE: Multiple Real-time grayscale images were obtained over the gravid uterus. COMPARISON: None. FINDINGS: A bailey viable IUP is in cephalic position. The amniotic fluid index is 7.1. The placenta is anterior with no abruption or previa. The heart rate was 125 BPM. Biometrical measurements correlate with an average age of 36 weeks 2 days for a sonographic date of confinement of 12/01/2020. Estimated weight is 2782 g which is at the 40th LMP percentile. IMPRESSION: Bailey viable IUP measuring 36 week 2 days with a 40% LMP percentile. Biometrical measurements are as follows: Biparietal 8.97 cm, age 36 weeks 3 days. Head circumference 32.40 cm, age 36 weeks 5 days. Abdominal circumference 31.50 cm, age 35 weeks 4 days. Femur length 7.05 cm, age 36 weeks 1 days. Sonographic estimate age: 36 weeks 2 days. Sonographic estimated date of delivery: 12/01/20. Estimated Weight: 2782 gm (+/- 406 gm). LMP percentile: 40%. heart rate: 125 beats per minute. number: 1 of 1. Dictated by: Dictated on workstation # [id number]
[2020-11-16] MEDS ORDERED: ACET-93 PO (11:37)
[2020-11-16] MEDS ORDERED: METO50TA15 PO (11:37)
== END 2020-11-05 11:45 | disposition home or self-care (01) ==
LOC: LDRP 14:30 → WSo 14:30 → LDRP 15:15 → UNDOADMOB 11-05 07:00 → WSo 11-05 08:34 → LDRP 11-05 08:34 → UNDODISOB 11-05 11:45 → EDSTATUS 11-18 14:57
PROVIDERS: ADMIT Family Medicine; ATTEND Family Medicine
DX: O14.93 Unspecified pre-eclampsia, third trimester (principal); Z3A.36 36 weeks gestation of pregnancy
CPT/HCPCS: 76805; 80053; 81000; 82570; 84156; 85025; 96360; 96361 ×2; G0378; G0379; 36415; 99211

== ENCOUNTER → 2020-11-04 | Outpatient (CLI) | payer OTHER, MEDICAID ==
[~2020-11-04] MED LIST changes: -OXYC-471 PO; +OXYC1TAB11 PO; -POLY17PO23 PO; +POLY17PO54 PO
[2020-11-04 11:26] LABS: BASOPHILS # (AUTO) 0.1 10^3/uL (0.0-0.1); BASOPHILS % (AUTO) 0 % (0-10); EOSINOPHILS # (AUTO) 0.2 10^3/uL (0.0-0.3); EOSINOPHILS % (AUTO) 2 % (0-10); HEMATOCRIT 31 % (35-52); HEMOGLOBIN 9.7 g/dL (11.5-16.0); LYMPHOCYTES # (AUTO) 2.6 10^3/uL (1.0-4.0); LYMPHOCYTES % (AUTO) 23 % (12-44); MEAN CORPUSCULAR HEMOGLOBIN 25 pg (25-34); MEAN CORPUSCULAR HGB CONC 31 g/dL (32-36); MEAN CORPUSCULAR VOLUME 81 fL (80-99); MEAN PLATELET VOLUME 10.1 fL (9.0-12.2); MONOCYTES # (AUTO) 0.8 10^3/uL (0.0-1.0); MONOCYTES % (AUTO) 7 % (0-12); NEUTROPHILS # (AUTO) 7.6 10^3/uL (1.8-7.8); NEUTROPHILS % (AUTO) 68 % (42-75); PLATELET COUNT 332 10^3/uL (130-400); WHITE BLOOD COUNT 11.2 10^3/uL (4.3-11.0)
[2020-11-04 11:48] LABS: ALANINE AMINOTRANSFERASE 7 U/L (0-55); ALBUMIN 2.9 GM/DL (3.2-4.5); ALKALINE PHOSPHATASE 147 U/L (40-136); BILIRUBIN,TOTAL 0.2 MG/DL (0.1-1.0); BUN/CREATININE RATIO 10; CALCIUM 8.4 MG/DL (8.5-10.1); CARBON DIOXIDE 20 MMOL/L (21-32); CHLORIDE 107 MMOL/L (98-107); CREATININE SERUM 0.62 MG/DL (0.60-1.30); GFR ESTIMATED > 60; GLUCOSE 104 MG/DL (70-105); POTASSIUM 3.7 MMOL/L (3.6-5.0); SODIUM 135 MMOL/L (135-145); TOTAL PROTEIN 7.1 GM/DL (6.4-8.2); URIC ACID 4.8 MG/DL (2.6-7.2)
== END ==
LOC: LAB 11:03
PROVIDERS: ATTEND Family Medicine
DX: O13.3 Gestational [pregnancy-induced] hypertension without significant proteinuria, third trimester (principal)
CPT/HCPCS: 36415; 80053; 82570; 83615; 84156; 84550; 85025

== ENCOUNTER → 2020-11-09 | Outpatient (CLI) | payer OTHER, MEDICAID ==
[2020-11-09 12:46] LABS: BASOPHILS # (AUTO) 0.1 10^3/uL (0.0-0.1); BASOPHILS % (AUTO) 1 % (0-10); EOSINOPHILS # (AUTO) 0.2 10^3/uL (0.0-0.3); EOSINOPHILS % (AUTO) 1 % (0-10); HEMATOCRIT 32 % (35-52); HEMOGLOBIN 9.9 g/dL (11.5-16.0); LYMPHOCYTES # (AUTO) 2.9 10^3/uL (1.0-4.0); LYMPHOCYTES % (AUTO) 23 % (12-44); MEAN CORPUSCULAR HEMOGLOBIN 25 pg (25-34); MEAN CORPUSCULAR HGB CONC 31 g/dL (32-36); MEAN CORPUSCULAR VOLUME 81 fL (80-99); MEAN PLATELET VOLUME 9.9 fL (9.0-12.2); MONOCYTES # (AUTO) 0.8 10^3/uL (0.0-1.0); MONOCYTES % (AUTO) 6 % (0-12); NEUTROPHILS # (AUTO) 8.5 10^3/uL (1.8-7.8); NEUTROPHILS % (AUTO) 68 % (42-75); PLATELET COUNT 339 10^3/uL (130-400); WHITE BLOOD COUNT 12.4 10^3/uL (4.3-11.0)
[2020-11-09 13:04] LABS: ALANINE AMINOTRANSFERASE 10 U/L (0-55); ALKALINE PHOSPHATASE 145 U/L (40-136); BILIRUBIN,TOTAL 0.2 MG/DL (0.1-1.0); BUN/CREATININE RATIO 10; CALCIUM 8.7 MG/DL (8.5-10.1); CARBON DIOXIDE 18 MMOL/L (21-32); CHLORIDE 107 MMOL/L (98-107); CREATININE SERUM 0.63 MG/DL (0.60-1.30); GFR ESTIMATED > 60; GLUCOSE 80 MG/DL (70-105); POTASSIUM 3.9 MMOL/L (3.6-5.0); SODIUM 135 MMOL/L (135-145); TOTAL PROTEIN 7.2 GM/DL (6.4-8.2); URIC ACID 4.8 MG/DL (2.6-7.2)
== END ==
LOC: LAB 12:24
PROVIDERS: ATTEND Family Medicine
DX: O13.3 Gestational [pregnancy-induced] hypertension without significant proteinuria, third trimester (principal)
CPT/HCPCS: 36415; 80053; 82570; 83615; 84156; 84550; 85025

== ENCOUNTER 2020-11-11 20:17 | Inpatient (IN) | payer OTHER, MEDICAID ==
[~2020-11-11] VITALS: Ht 152 cm; Wt 86.0 kg
[2020-11-11] MEDS ORDERED: D5 LR IV SOLUTION 1,000 ML IV ONE (20:36)
[2020-11-11 20:45] VITALS: BP_SYST 160; BP_DIAS 92; BP_DIAS 96
[2020-11-11] MEDS ORDERED: OXYTOCIN PRE-MIX DRIP 500 ML IV SCH (20:45)
[2020-11-11] MEDS ORDERED: MINERAL OIL CONCENTRATE 99.9% 15 ML UDC TOP PRN (20:45)
[2020-11-11 21:00] VITALS: BP 158/90
[2020-11-11 21:15] VITALS: BP 153/82
[2020-11-11 21:16] LABS: BASOPHILS % (AUTO) 0 % (0-10); EOSINOPHILS # (AUTO) 0.1 10^3/uL (0.0-0.3); EOSINOPHILS % (AUTO) 1 % (0-10); HEMATOCRIT 31 % (35-52); HEMOGLOBIN 9.7 g/dL (11.5-16.0); LYMPHOCYTES # (AUTO) 2.2 10^3/uL (1.0-4.0); LYMPHOCYTES % (AUTO) 19 % (12-44); MEAN CORPUSCULAR HEMOGLOBIN 25 pg (25-34); MEAN CORPUSCULAR HGB CONC 31 g/dL (32-36); MEAN CORPUSCULAR VOLUME 80 fL (80-99); MEAN PLATELET VOLUME 10.4 fL (9.0-12.2); MONOCYTES # (AUTO) 0.8 10^3/uL (0.0-1.0); MONOCYTES % (AUTO) 7 % (0-12); NEUTROPHILS # (AUTO) 8.4 10^3/uL (1.8-7.8); NEUTROPHILS % (AUTO) 73 % (42-75); PLATELET COUNT 317 10^3/uL (130-400); WHITE BLOOD COUNT 11.5 10^3/uL (4.3-11.0)
[2020-11-11 21:30] VITALS: BP 137/76
[2020-11-11 21:34] LABS: ALANINE AMINOTRANSFERASE 11 U/L (0-55); ALBUMIN 2.9 GM/DL (3.2-4.5); ALKALINE PHOSPHATASE 159 U/L (40-136); BILIRUBIN,TOTAL 0.2 MG/DL (0.1-1.0); BUN/CREATININE RATIO 8; CALCIUM 8.3 MG/DL (8.5-10.1); CARBON DIOXIDE 18 MMOL/L (21-32); CHLORIDE 106 MMOL/L (98-107); CREATININE SERUM 0.63 MG/DL (0.60-1.30); GFR ESTIMATED > 60; GLUCOSE 119 MG/DL (70-105); POTASSIUM 3.5 MMOL/L (3.6-5.0); SODIUM 135 MMOL/L (135-145); TOTAL PROTEIN 6.9 GM/DL (6.4-8.2)
[2020-11-11] MEDS ORDERED: AMPICILLIN 2,000 MG/14.8 ML (IV USE) ONE (21:35)
[2020-11-11] MEDS ORDERED: NS IV 500 ML 500 ML ONE (21:35)
[2020-11-11] MEDS ORDERED: WATER (STERILE) FOR INJECTION 20 ML ONE (21:36)
[2020-11-11 21:45] VITALS: BP 164/88
[2020-11-11] MEDS: NS IV 500 ML 500 ML IV SCH (21:58)
[2020-11-11] MEDS: D5 LR IV SOLUTION 1,000 ML IV SCH (21:58)
[2020-11-11] MEDS ORDERED: CATHETER FLUSH 10 ML SYR IV SCH (22:00)
[2020-11-11] MEDS ORDERED: AMPICILLIN FOR IV USE 2,000 MG in WATER (STERILE) FOR INJECTION 14.8 ML IV SCH (22:00)
[2020-11-11] MEDS ORDERED: MAGNESIUM IV ONE (22:56)
[2020-11-11] MEDS ORDERED: [UNRECOGNIZED DRUG - OTHER] IV ONE (22:56)
[2020-11-11 23:00] VITALS: BP 161/88
[2020-11-11] MEDS ORDERED: LABETALOL HCL 20 MG/4 ML VIAL ONE (23:08)
[2020-11-11] MEDS ORDERED: LABETALOL HCL 20 MG/4 ML VIAL IV ONE (23:15)
[2020-11-12] VITALS (54 sets, daily range): BP systolic 129–198; BP diastolic 65–98
[2020-11-12] MEDS: AMPICILLIN FOR IV USE 1,000 MG in WATER (STERILE) FOR INJECTION 7.4 ML IV SCH ×2 (01:57→06:11)
[2020-11-12] MEDS ORDERED: LABETALOL HCL 20 MG/4 ML VIAL ONE (03:07)
[2020-11-12] MEDS ORDERED: LABETALOL HCL 20 MG/4 ML VIAL IV ONE ×3 (03:15→09:00)
--- NOTE | 2020-11-12 06:18 | History & Physical-OB ---
OB - Chief Complaint & HPI Date/Time Date of Admission: Date of Admission: Nov 11, 2020 at 20:18 Date seen by a Provider: Nov 11, 2020 Time Seen by a Provider: 17:00 Chief Complaint/History OB-Reason for Admission/Chief: Medical Complication Hx : 5 Hx Para: 4 Expected Date of Delivery: Dec 01, 2020 Gestational Age in Weeks: 37 Gestational Age in Days: 1 Indication for induction: medical complication History of Labs O+, antibody neg, RI. HIV/HepB/RPR NR. Glucola neg. GBS pos. Other 40 yo patient following with outpatient, at 37w1d presented to clinic on 11/11 for routine visit and was found to have high blood pressure which was persistent since the week prior when she was admitted for observation and had urine pr/cr ratio of 0.35. She was therefore being followed closely and had a BPP on 11/11 which was 8/10. She denies headache, vision changes, abdominal pain or swelling. Allergies and Home Medications Allergies Coded Allergies: No Known Drug Allergies (Unverified , 01/27/14) Home Medications Vit #76/Iron,Carb/FA 1 Each Tablet, 1 EACH PO DAILY, (Reported) Patient Home Medication List Home Medication List Reviewed: Yes OB - History Hx of Present Care: Yes (limited, first visit at 32 weeks.) Obstetrical Complications: Pre-eclampsia Information Induced Hypertension: Yes Maternal Gestational Diabetes: No Hemorrhage: No Obstetrical History Hx : 5 Hx Para: 4 Hx # Term Pregnancies: 4 Hx # Pregnancies: 0 Number of Living Children: 4 Hx Termination: No Hx Multiple Gestation: No Hx Ectopic : No Hx Stillbirth: No Hx Complication: No Hx Induced Hypertens: No Hx Maternal Gestational Diabet: No Hx Hemorrhage: No Delivery History Hx Dystocia: No Hx Forceps Assisted Delivery: No Hx Vacuum Extraction Assisted: No Hx Placenta Abnormality: No Hx Distress: No Hx Large For Gestational Age I: No Hx Small for Gestational Age I: No Hx Section: No Hx Vaginal Delivery Post C-Sec: No Hx Blood Disorders: No Adverse Rxn to Tranfusion: No Patient Past Medical History denies PMH Social History/Family History Alcohol Use: Denies Use Recreational Drug Use: No Smoking Cessation: Never smoker 2nd Hand Smoke Exposure: No Immunizations Hepatitis B: Yes Tetanus Booster (TDap): Less than 5yrs (02/06/2018) Date of Influenza Vaccine: Jul 28, 2015 Rubella: immune RPR/VDRL: Negative GBS Status: Positive HBsAG: Negative OB - Admission Exam Physical Exam Vitals: Vital Signs 11/12/20 11/12/20 03:00 04:00 Temp 36.6 Pulse 72 Resp 18 B/P (MAP) 180/84 (116) Pulse Ox 99 O2 Delivery Room Air HEENT: NCAT Heart: Rhythm Normal Lungs: Clear, Equal Abdomen: Non tender Extremities: Normal Cervical Dilatation: 1cm (on 11/11 at 1700, this am /2) Effacement: 50% Station: -3 Membranes: Intact Heart Rate: 140's Accelerations: Accelerations Present Decelerations: Variable Decelerations Short Term Variability: Present [employer] Variability: Average (6-25) Contractions on Admission: None [employer] Scoring Tool (Modified) Dilation (cm): 1-2cm (1) Effacement (%): 31-51% (1) Descent/Station: -2 (1) Cervix Consistency: Medium(1) Cervix Position: Middle/Mid-Position (1) Add 1 point for: Pre-eclampsia (1) (10), Each previous vaginal delivery (1) (4) Labs Laboratory Tests Test 11/11/20 21:00 11/11/20 22:00 Range/Units White Blood Count 11.5 H 4.3-11.0 10^3/uL Red Blood Count 3.87 3.80-5.11 10^6/uL Hemoglobin 9.7 L 11.5-16.0 g/dL Hematocrit 31 L 35-52 % Mean Corpuscular Volume 80 80-99 fL Mean Corpuscular Hemoglobin 25 25-34 pg Mean Corpuscular Hemoglobin Concent 31 L 32-36 g/dL Red Cell Distribution Width 13.0 10.0-14.5 % Platelet Count 317 130-400 10^3/uL Mean Platelet Volume 10.4 9.0-12.2 fL Immature Granulocyte % (Auto) 0 % Neutrophils (%) (Auto) 73 42-75 % Lymphocytes (%) (Auto) 19 12-44 % Monocytes (%) (Auto) 7 0-12 % Eosinophils (%) (Auto) 1 0-10 % Basophils (%) (Auto) 0 0-10 % Neutrophils # (Auto) 8.4 H 1.8-7.8 10^3/uL Lymphocytes # (Auto) 2.2 1.0-4.0 10^3/uL Monocytes # (Auto) 0.8 0.0-1.0 10^3/uL Eosinophils # (Auto) 0.1 0.0-0.3 10^3/uL Basophils # (Auto) 0.0 0.0-0.1 10^3/uL Immature Granulocyte # (Auto) 0.1 0.0-0.1 10^3/uL Sodium Level 135 135-145 MMOL/L Potassium Level 3.5 L 3.6-5.0 MMOL/L Chloride Level 106 98-107 MMOL/L Carbon Dioxide Level 18 L 21-32 MMOL/L Anion Gap 11 5-14 MMOL/L Blood Urea Nitrogen 5 L 7-18 MG/DL Creatinine 0.63 0.60-1.30 MG/DL Estimat Glomerular Filtration Rate > 60 BUN/Creatinine Ratio 8 Glucose Level 119 H 70-105 MG/DL Uric Acid 5.0 2.6-7.2 MG/DL Calcium Level 8.3 L 8.5-10.1 MG/DL Corrected Calcium 9.2 8.5-10.1 MG/DL Total Bilirubin 0.2 0.1-1.0 MG/DL Aspartate Amino Transf (AST/SGOT) 14 5-34 U/L Alanine Aminotransferase (ALT/SGPT) 11 0-55 U/L Alkaline Phosphatase 159 H 40-136 U/L Lactate Dehydrogenase 220 125-220 U/L Total Protein 6.9 6.4-8.2 GM/DL Albumin 2.9 L 3.2-4.5 GM/DL Urine Protein 86 H 6-12 MG/DL Urine Creatinine 164 H 30-125 MG/DL Urine Protein/Creatinine Ratio 0.52 OB - Assessment/Plan/Diagnosis Assessment Admission Dx Term intrauterine at 37 weeks Preeclampsia with severe features Induction of labor Admission Status: Inpatient Order (span 2 midnights) Reason for Inpatient Admission: Induction, labor, delivery and course Plan Plan: Induction Induction Method: per Misoprostol Protocol Other Plan Preeclampsia with severe features- recommend magnesium, but patient refused, discussed again this morning and re-emphasized risk of seizure or is increased in severe preeclampsia without magnesium treatment, and she states she will consider but for now declines. Required labetalol twice overnight for blood pressure systolic over 160. GBS pos- ampicillin AROM done at time of exam this morning with clear fluid return ALEXANDER MARTINEZ MD Nov 12, 2020 06:18
[2020-11-12] MEDS ORDERED: LABETALOL HCL 20 MG/4 ML VIAL IV NR (07:25)
[2020-11-12] MEDS ORDERED: EPIDURAL (fentaNYL 2 MCG/ML BUPIVA 0.125%)100 ML BAG EPI SCH (08:00)
[2020-11-12] MEDS ORDERED: diphenhydrAMINE 50 MG/ML INJ (BENADRYL) IV PRN (08:00)
[2020-11-12] MEDS ORDERED: METOCLOPRAMIDE INJ 10 MG/2 ML (REGLAN) IV PRN (08:00)
[2020-11-12] MEDS ORDERED: LACTATED RINGERS 1,000 ML IV SCH (08:00)
[2020-11-12] MEDS ORDERED: NALOXONE 0.4 MG/ML 1 ML (NARCAN) VIAL IV PRN ×2 (08:00)
[2020-11-12] MEDS ORDERED: ONDANSETRON 4 MG/2 ML (SDV) Z0FRAN IV PRN (08:00)
--- NOTE | 2020-11-12 08:34 | OB Labor & Delivery Record ---
Vag Delivery Note Vag Delivery Note Date of Delivery: 11/12/20 Preoperative Diagnosis: Mary Kate Candelario is a (40 /Para 5 / 4,Gestational Age (wks)37with 2 days Postoperative Diagnosis: Same Surgeon: ALEXANDER MARTINEZ Perforator Loader: Devika Merchant [id number] Anesthesia: None Delivery Type: Spontaneous vaginal delivery Findings: Viable male , apgars 8/9, weight 5#6 Lacerations: bilateral periurethral abrasion Intact placenta with 3 vessel cord. No nuchal cord, body cord or shoulder dystocia Estimated Blood Loss: 200 ml Complications: None Condition: Stable Description of Procedure: The patient is a 40 year old female who presented for induction of labor due to preeclampsia with severe features. She was admitted and informed consent was obtained. Her labor course was remarkable for severe blood pressure elevations requiring labetalol times three, precipitous delivery She progressed to complete dilatation and began to push. The infant's head was delivered atraumatically and the shoulders and remainder of the 's body were then delivered without difficulty, monitored by bedside nurse. Upon delivery, the was placed on maternal abdomen. Delivery was at 0815, I arrived at 0816 before cord clamping. The cord was doubly clamped and cut and the infant remained on maternal chest. An intact placenta with 3-vessel cord delivered via [place]y and there was found to be minimal bleeding.~ Vigorous fundal massage was performed and the fundus was found to be firm. IV oxytocin was given. Examination of the vagina and perineum revealed a bilateral periurethral abrasion not requiring repair. Following the delivery, sponge, instrument and needle counts were correct. Mom and baby were both in stable condition in the labor suite. Vitals - Labs Vital Signs - I&O Vital Signs Date Time Temp Pulse Resp B/P (MAP) Pulse Ox O2 Delivery O2 Flow Rate FiO2 11/12/20 07:00 70 18 176/81 (112) Room Air 11/12/20 06:30 37.0 71 18 149/74 (99) Room Air 11/12/20 06:15 71 18 164/83 (110) 99 Room Air 11/12/20 05:30 62 18 146/69 (94) 99 Room Air 11/12/20 04:30 62 18 150/80 (103) 99 Room Air 11/12/20 04:15 71 18 162/77 (105) 99 Room Air 11/12/20 04:00 72 18 180/84 (116) 99 Room Air 11/12/20 03:30 72 18 171/85 (113) 99 Room Air 11/12/20 03:00 36.6 67 18 180/84 (116) Room Air 11/12/20 02:30 69 18 159/76 (103) Room Air 11/12/20 02:00 69 18 164/74 (104) Room Air 11/12/20 01:30 71 18 160/84 (109) Room Air 11/12/20 01:00 80 18 137/84 (101) Room Air 11/12/20 00:30 69 18 144/84 (104) Room Air 11/12/20 00:00 36.6 71 18 154/85 (108) Room Air 11/11/20 23:00 73 18 161/88 (112) Room Air 11/11/20 21:45 71 18 164/88 (113) Room Air 11/11/20 21:30 73 18 137/76 (96) Room Air 11/11/20 21:15 77 18 153/82 (105) Room Air 11/11/20 21:00 78 18 158/90 (112) Room Air 11/11/20 20:45 36.5 83 18 100 Room Air 11/11/20 20:45 36.5 78 18 160/92 (114) 100 Room Air Labs Laboratory Tests 11/11/20 21:00: White Blood Count 11.5H, Red Blood Count 3.87, Hemoglobin 9.7L, Hematocrit 31L, Mean Corpuscular Volume 80, Mean Corpuscular Hemoglobin 25, Mean Corpuscular Hemoglobin Concent 31L, Red Cell Distribution Width 13.0, Platelet Count 317, Mean Platelet Volume 10.4, Immature Granulocyte % (Auto) 0, Neutrophils (%) (Auto) 73, Lymphocytes (%) (Auto) 19, Monocytes (%) (Auto) 7, Eosinophils (%) (Auto) 1, Basophils (%) (Auto) 0, Neutrophils # (Auto) 8.4H, Lymphocytes # (Auto) 2.2, Monocytes # (Auto) 0.8, Eosinophils # (Auto) 0.1, Basophils # (Auto) 0.0, Immature Granulocyte # (Auto) 0.1, Sodium Level 135, Potassium Level 3.5L, Chloride Level 106, Carbon Dioxide Level 18L, Anion Gap 11, Blood Urea Nitrogen 5L, Creatinine 0.63, Estimat Glomerular Filtration Rate > 60, BUN/Creatinine Ratio 8, Glucose Level 119H, Uric Acid 5.0, Calcium Level 8.3L, Corrected Calcium 9.2, Total Bilirubin 0.2, Aspartate Amino Transf (AST/SGOT) 14, Alanine Aminotransferase (ALT/SGPT) 11, Alkaline Phosphatase 159H, Lactate Dehydrogenase 220, Total Protein 6.9, Albumin 2.9L 11/11/20 22:00: Urine Protein 86H, Urine Creatinine 164H, Urine Protein/Creatinine Ratio 0.52 ALEXANDER MARTINEZ MD Nov 12, 2020 08:34
[2020-11-12] MEDS ORDERED: WITCH HAZEL(TUCKS) 40 EA JAR TOP PRN (09:00)
[2020-11-12] MEDS ORDERED: MEASLES,MUMPS,RUBELLA 1 EA INJ SQ ONE (09:00)
[2020-11-12] MEDS ORDERED: TETANUS,DIPTH,PERTUSS P/F (BOOSTRIX) 0.5 ML VIAL IM ONE (09:00)
[2020-11-12] MEDS ORDERED: MAGNESIUM 1 GM/100 ML IVPB 100 ML IV SCH (09:00)
[2020-11-12] MEDS ORDERED: BENZOCAINE/MENTHOL (DERMOPLAST) 56 ML CAN TP PRN (09:00)
[2020-11-12] MEDS ORDERED: OXYTOCIN PRE-MIX DRIP 500 ML IV SCH (09:00)
[2020-11-12] MEDS ORDERED: MAGNESIUM 4 GM/100 ML IVPB 100 ML IV ONE (09:09)
[2020-11-12] MEDS ORDERED: D5 LR IV SOLUTION 1,000 ML IV ONE ×2 (09:11→22:42)
[2020-11-12] MEDS: D5 LR IV SOLUTION 1,000 ML IV SCH ×2 (09:21→22:49)
[2020-11-12] MEDS: MAGNESIUM SULFATE DRIP 500 ML IV SCH ×2 (09:29→19:40)
[2020-11-12] MEDS ORDERED: CATHETER FLUSH 10 ML SYR IV SCH (14:00)
[2020-11-12] MEDS: ACETAMINOPHEN 500 MG TAB (TYLENOL) PO SCH (14:33)
[2020-11-12] MEDS ORDERED: ONDANSETRON 4 MG (ZOFRAN) ORAL DISSOLVE TAB PO PRN (20:00)
[2020-11-12] MEDS: DOCUSATE SODIUM 100 MG (COLACE) CAP PO SCH (20:26)
[2020-11-13] VITALS (15 sets, daily range): BP systolic 128–151; BP diastolic 68–94
[2020-11-13] MEDS: ACETAMINOPHEN 500 MG TAB (TYLENOL) PO SCH ×3 (01:01→17:16)
[2020-11-13] MEDS: MAGNESIUM SULFATE DRIP 500 ML IV SCH (05:51)
[2020-11-13] MEDS: DOCUSATE SODIUM 100 MG (COLACE) CAP PO SCH (08:56)
[2020-11-13] MEDS: PRENATAL VITAMIN 1 EA TAB PO SCH (08:56)
[2020-11-13 09:25] LABS: BASOPHILS # (AUTO) 0.1 10^3/uL (0.0-0.1); BASOPHILS % (AUTO) 0 % (0-10); EOSINOPHILS # (AUTO) 0.2 10^3/uL (0.0-0.3); EOSINOPHILS % (AUTO) 1 % (0-10); HEMATOCRIT 31 % (35-52); HEMOGLOBIN 9.6 g/dL (11.5-16.0); LYMPHOCYTES # (AUTO) 2.6 10^3/uL (1.0-4.0); LYMPHOCYTES % (AUTO) 18 % (12-44); MEAN CORPUSCULAR HEMOGLOBIN 26 pg (25-34); MEAN CORPUSCULAR HGB CONC 31 g/dL (32-36); MEAN CORPUSCULAR VOLUME 83 fL (80-99); MEAN PLATELET VOLUME 10.1 fL (9.0-12.2); MONOCYTES # (AUTO) 0.8 10^3/uL (0.0-1.0); MONOCYTES % (AUTO) 6 % (0-12); NEUTROPHILS # (AUTO) 10.5 10^3/uL (1.8-7.8); NEUTROPHILS % (AUTO) 74 % (42-75); PLATELET COUNT 321 10^3/uL (130-400); WHITE BLOOD COUNT 14.1 10^3/uL (4.3-11.0)
--- NOTE | 2020-11-13 10:20 | Progress Note ---
Subjective Subjective/Events-last exam Intermittent ALEX attributed to Mag. Overall feeling well. BP better controlled w/o medication. Appropriate UOP. Objective Exam Last Set of Vital Signs Vital Signs Date Time Temp Pulse Resp B/P (MAP) Pulse Ox O2 Delivery O2 Flow Rate FiO2 11/13/20 10:00 75 16 141/68 (92) 98 Room Air 11/13/20 07:51 37.0 Capillary Refill : Less Than 3 Seconds I&O Intake and Output 11/13/20 00:00 Intake Total 2900 ml Output Total 4325 ml Balance -1425 ml Intake Oral 300 ml IV Total 2600 ml Output Urine Total 4325 ml General: Alert, Oriented X3, Cooperative Lungs: Normal Air Movement Psych/Mental Status: Mood NL Results/Procedures Lab Laboratory Tests 11/13/20 09:18: White Blood Count 14.1H, Red Blood Count 3.74L, Hemoglobin 9.6L, Hematocrit 31L, Mean Corpuscular Volume 83, Mean Corpuscular Hemoglobin 26, Mean Corpuscular Hemoglobin Concent 31L, Red Cell Distribution Width 13.4, Platelet Count 321, Mean Platelet Volume 10.1, Immature Granulocyte % (Auto) 1, Neutrophils (%) (Auto) 74, Lymphocytes (%) (Auto) 18, Monocytes (%) (Auto) 6, Eosinophils (%) (Auto) 1, Basophils (%) (Auto) 0, Neutrophils # (Auto) 10.5H, Lymphocytes # (Auto) 2.6, Monocytes # (Auto) 0.8, Eosinophils # (Auto) 0.2, Basophils # (Auto) 0.1, Immature Granulocyte # (Auto) 0.1 Assessment/Plan Assessment/Plan (1) Precipitous delivery, delivered (current hospitalization) Assessment & Plan: s/p precipitous at 37w2d; IOL for severe pre-eclampsia PPD#1 - BP improved w/o need for treatment - DC mag today - anticipate DC home tomorrow. (2) Preeclampsia Status: Acute STIVEN SHEPARD DO Nov 13, 2020 10:20
[2020-11-14] MEDS: ACETAMINOPHEN 500 MG TAB (TYLENOL) PO SCH ×3 (00:47→20:58)
[2020-11-14 05:30] VITALS: BP 144/77
[2020-11-14 08:30] VITALS: BP_SYST 168; BP_SYST 172; BP_DIAS 77; BP_DIAS 82
[2020-11-14] MEDS: PRENATAL VITAMIN 1 EA TAB PO SCH (08:39)
[2020-11-14] MEDS: DOCUSATE SODIUM 100 MG (COLACE) CAP PO SCH ×2 (08:39→20:58)
[2020-11-14 12:15] VITALS: BP 172/87
[2020-11-14] MEDS: meTOprolol TARTRATE 25 MG (LOPRESSOR) TABLET PO SCH ×2 (14:30→20:58)
[2020-11-14 15:45] VITALS: BP 159/79
[2020-11-14 19:20] VITALS: BP_SYST 151; BP_SYST 170; BP_DIAS 94; BP_DIAS 96
[2020-11-14 22:15] VITALS: BP 162/87
[2020-11-15] VITALS (7 sets, daily range): BP systolic 137–168; BP diastolic 72–91
[2020-11-15 06:23] LABS: BASOPHILS # (AUTO) 0.1 10^3/uL (0.0-0.1); BASOPHILS % (AUTO) 0 % (0-10); EOSINOPHILS # (AUTO) 0.4 10^3/uL (0.0-0.3); EOSINOPHILS % (AUTO) 3 % (0-10); HEMATOCRIT 32 % (35-52); HEMOGLOBIN 9.8 g/dL (11.5-16.0); LYMPHOCYTES # (AUTO) 3.3 10^3/uL (1.0-4.0); LYMPHOCYTES % (AUTO) 22 % (12-44); MEAN CORPUSCULAR HEMOGLOBIN 25 pg (25-34); MEAN CORPUSCULAR HGB CONC 30 g/dL (32-36); MEAN CORPUSCULAR VOLUME 82 fL (80-99); MONOCYTES % (AUTO) 7 % (0-12); NEUTROPHILS # (AUTO) 9.9 10^3/uL (1.8-7.8); NEUTROPHILS % (AUTO) 67 % (42-75); PLATELET COUNT 359 10^3/uL (130-400); WHITE BLOOD COUNT 14.9 10^3/uL (4.3-11.0)
[2020-11-15] MEDS: ACETAMINOPHEN 500 MG TAB (TYLENOL) PO SCH ×4 (06:37→18:05)
[2020-11-15 06:45] LABS: ALANINE AMINOTRANSFERASE 12 U/L (0-55); ALBUMIN 3.1 GM/DL (3.2-4.5); ALKALINE PHOSPHATASE 121 U/L (40-136); BILIRUBIN,TOTAL 0.1 MG/DL (0.1-1.0); BUN/CREATININE RATIO 19; CALCIUM 8.9 MG/DL (8.5-10.1); CARBON DIOXIDE 20 MMOL/L (21-32); CHLORIDE 104 MMOL/L (98-107); CREATININE SERUM 0.62 MG/DL (0.60-1.30); GFR ESTIMATED > 60; GLUCOSE 95 MG/DL (70-105); POTASSIUM 4.1 MMOL/L (3.6-5.0); SODIUM 136 MMOL/L (135-145); TOTAL PROTEIN 7.3 GM/DL (6.4-8.2)
--- NOTE | 2020-11-15 09:37 | Progress Note ---
Subjective Subjective/Events-last exam Late Entry (Pt seen 11/15/19 at 0800) BP starting to run higher. Good UOP. Mild intermittent ALEX relieved with APAP. Objective Exam Last Set of Vital Signs Vital Signs Date Time Temp Pulse Resp B/P (MAP) Pulse Ox O2 Delivery O2 Flow Rate FiO2 11/15/20 05:30 36.8 74 16 140/77 (98) 97 Room Air Capillary Refill : Less Than 3 Seconds General: Alert, Oriented X3, Cooperative Neuro: Reflexes 2+ Psych/Mental Status: Mood NL Results/Procedures Lab Laboratory Tests 11/15/20 06:13: White Blood Count 14.9H, Red Blood Count 3.94, Hemoglobin 9.8L, Hematocrit 32L, Mean Corpuscular Volume 82, Mean Corpuscular Hemoglobin 25, Mean Corpuscular Hemoglobin Concent 30L, Red Cell Distribution Width 13.2, Platelet Count 359, Mean Platelet Volume 10.0, Immature Granulocyte % (Auto) 1, Neutrophils (%) (Auto) 67, Lymphocytes (%) (Auto) 22, Monocytes (%) (Auto) 7, Eosinophils (%) (Auto) 3, Basophils (%) (Auto) 0, Neutrophils # (Auto) 9.9H, Lymphocytes # (Auto) 3.3, Monocytes # (Auto) 1.0, Eosinophils # (Auto) 0.4H, Basophils # (Auto) 0.1, Immature Granulocyte # (Auto) 0.2H, Sodium Level 136, Potassium Level 4.1, Chloride Level 104, Carbon Dioxide Level 20L, Anion Gap 12, Blood Urea Nitrogen 12, Creatinine 0.62, Estimat Glomerular Filtration Rate > 60, BUN/Creatinine Ratio 19, Glucose Level 95, Calcium Level 8.9, Corrected Calcium 9.6, Total Bilirubin 0.1, Aspartate Amino Transf (AST/SGOT) 14, Alanine Aminotransferase (ALT/SGPT) 12, Alkaline Phosphatase 121, Total Protein 7.3, Albumin 3.1L Assessment/Plan Assessment/Plan (1) Precipitous delivery, delivered (current hospitalization) Assessment & Plan: s/p precipitous at 37w2d; IOL for severe pre-eclampsia PPD#1 - BP improved w/o need for treatment - DC mag today - anticipate DC home tomorrow. 11/14: PPD#2 - BP increasing, started metoprolol. - repeat labs in am. (2) Preeclampsia Status: Acute SHEPARD,STIVEN K DO Nov 15, 2020 09:37
[2020-11-15] MEDS: meTOprolol TARTRATE 25 MG (LOPRESSOR) TABLET PO SCH ×2 (09:39→19:55)
[2020-11-15] MEDS: DOCUSATE SODIUM 100 MG (COLACE) CAP PO SCH ×2 (09:39→19:55)
[2020-11-15] MEDS: PRENATAL VITAMIN 1 EA TAB PO SCH (09:39)
[2020-11-15] MEDS ORDERED: meTOprolol TARTRATE 25 MG (LOPRESSOR) TABLET PO ONE (10:00)
--- NOTE | 2020-11-15 10:01 | Progress Note ---
Subjective Subjective/Events-last exam BP 140-168/70-90s. Overall feeling better. +UOP Objective Exam Last Set of Vital Signs Vital Signs Date Time Temp Pulse Resp B/P (MAP) Pulse Ox O2 Delivery O2 Flow Rate FiO2 11/15/20 09:38 36.8 77 16 155/88 (110) 97 Room Air Capillary Refill : Less Than 3 Seconds General: Alert, Oriented X3, Cooperative Extremities: No Edema Neuro: Reflexes 2+ Psych/Mental Status: Mood NL Results/Procedures Lab Laboratory Tests 11/15/20 06:13: White Blood Count 14.9H, Red Blood Count 3.94, Hemoglobin 9.8L, Hematocrit 32L, Mean Corpuscular Volume 82, Mean Corpuscular Hemoglobin 25, Mean Corpuscular Hemoglobin Concent 30L, Red Cell Distribution Width 13.2, Platelet Count 359, Mean Platelet Volume 10.0, Immature Granulocyte % (Auto) 1, Neutrophils (%) (Auto) 67, Lymphocytes (%) (Auto) 22, Monocytes (%) (Auto) 7, Eosinophils (%) (Auto) 3, Basophils (%) (Auto) 0, Neutrophils # (Auto) 9.9H, Lymphocytes # (Auto) 3.3, Monocytes # (Auto) 1.0, Eosinophils # (Auto) 0.4H, Basophils # (Auto) 0.1, Immature Granulocyte # (Auto) 0.2H, Sodium Level 136, Potassium Level 4.1, Chloride Level 104, Carbon Dioxide Level 20L, Anion Gap 12, Blood Urea Nitrogen 12, Creatinine 0.62, Estimat Glomerular Filtration Rate > 60, BUN/Creatinine Ratio 19, Glucose Level 95, Calcium Level 8.9, Corrected Calcium 9.6, Total Bilirubin 0.1, Aspartate Amino Transf (AST/SGOT) 14, Alanine Aminotransferase (ALT/SGPT) 12, Alkaline Phosphatase 121, Total Protein 7.3, Albumin 3.1L Assessment/Plan Assessment/Plan (1) Precipitous delivery, delivered (current hospitalization) Assessment & Plan: s/p precipitous at 37w2d; IOL for severe pre-eclampsia PPD#1 - BP improved w/o need for treatment - DC mag today - anticipate DC home tomorrow. 11/14: PPD#2 - BP increasing, started metoprolol. - repeat labs in am. 11/15: PPD#3 - BP improving slowly - labs normal - increase Metoprolol to 50mg BID (2) Preeclampsia Status: Acute STIVEN SHEPARD DO Nov 15, 2020 10:01
[2020-11-15] MEDS: NS IV 500 ML 500 ML IV SCH ×2 (21:42→21:43)
[2020-11-16 03:23] VITALS: BP 161/86
[2020-11-16] MEDS: ACETAMINOPHEN 500 MG TAB (TYLENOL) PO SCH ×2 (05:56→13:48)
[2020-11-16] MEDS: PRENATAL VITAMIN 1 EA TAB PO SCH (05:56)
[2020-11-16 09:45] VITALS: BP 126/73
[2020-11-16] MEDS: DOCUSATE SODIUM 100 MG (COLACE) CAP PO SCH (09:59)
[2020-11-16] MEDS: meTOprolol TARTRATE 25 MG (LOPRESSOR) TABLET PO SCH (10:00)
[2020-11-16] MEDS ORDERED: METO50TA15 PO (11:37)
[2020-11-16] MEDS ORDERED: ACET-93 PO (11:37)
[2020-11-16 13:30] VITALS: BP 120/57
--- NOTE | 2020-11-16 14:40 | Short Stay Summary ---
Discharge Summary Hospital Course Problems/Dx: (1) Status post vaginal delivery (2) Preeclampsia Status: Acute Final Diagnosis: see problem list Hospital Course Date of Admission: Nov 11, 2020 at 20:18 Admission Diagnosis : 1. IOL at 37w2d 2. Severe pre-eclampsia Family Physician/Provider: Rad Tripathi MD Date of Discharge: 11/16/20 Discharge Diagnosis: 1. IOL at 37w2d s/p 2. Severe pre-eclampsia Hospital Course: Patient was admitted for IOL at 37 wk due to severe pre-eclampsia. on 11/12/20. Patient initially declined magnesium sulfate during labor but was agreeable after delivery and was started on IV magnesium. BP during labor required treatment with IV medication but improved initially after delivery. Appropriate urine out pt after delivery. Mag Sulfate was DC'd after 24h post- delivery. Patient then began having increases in BP into the 160-170/90s. Patient was started on po metoprolol which was increased to 50mg BID to control BP. BP at time of DC was controlled and patient was asymptomatic. Labs and Pending Lab Test: Laboratory Tests 11/15/20 06:13: White Blood Count 14.9H, Red Blood Count 3.94, Hemoglobin 9.8L, Hematocrit 32L, Mean Corpuscular Volume 82, Mean Corpuscular Hemoglobin 25, Mean Corpuscular Hemoglobin Concent 30L, Red Cell Distribution Width 13.2, Platelet Count 359, Mean Platelet Volume 10.0, Immature Granulocyte % (Auto) 1, Neutrophils (%) (Auto) 67, Lymphocytes (%) (Auto) 22, Monocytes (%) (Auto) 7, Eosinophils (%) (Auto) 3, Basophils (%) (Auto) 0, Neutrophils # (Auto) 9.9H, Lymphocytes # (Auto) 3.3, Monocytes # (Auto) 1.0, Eosinophils # (Auto) 0.4H, Basophils # (Auto) 0.1, Immature Granulocyte # (Auto) 0.2H, Sodium Level 136, Potassium Level 4.1, Chloride Level 104, Carbon Dioxide Level 20L, Anion Gap 12, Blood Urea Nitrogen 12, Creatinine 0.62, Estimat Glomerular Filtration Rate > 60, BUN/Creatinine Ratio 19, Glucose Level 95, Calcium Level 8.9, Corrected Calcium 9.6, Total Bilirubin 0.1, Aspartate Amino Transf (AST/SGOT) 14, Alanine Aminotransferase (ALT/SGPT) 12, Alkaline Phosphatase 121, Total Protein 7.3, Albumin 3.1L Home Meds Active Acetaminophen 500 Mg Tablet 1,000 Mg PO Q8HR PRN Metoprolol Tartrate 50 Mg Tablet 50 Mg PO BID Reported Pnv 29-1 Tablet ( Vit #76/Iron,Carb/FA) 1 Each Tablet 1 Each PO DAILY Assessment/Pt Instructions Follow up with Dr. Tripathi in 1 week. Discharge Instructions Discharge Diet: No Restrictions Discharge Physical Examination General Appearance: Alert, Oriented X3, Cooperative Respiratory: Normal Air Movement Extremities: No Edema Psych/Mental Status: Mood NL Allergies: Coded Allergies: No Known Drug Allergies (Unverified , 01/27/14) Copy Copies To 1: RAD TRIPATHI MD Discharge Summary Date of Admission Nov 11, 2020 at 20:18 Date of Discharge STIVEN SHEPARD DO Nov 16, 2020 14:18
[2020-11-16 16:20] VITALS: BP 120/57
== END 2020-11-16 16:20 | disposition home or self-care (01) | DRG 807 ==
LOC: WSo 20:17 → LDRP 20:18
PROVIDERS: ADMIT Family Medicine; ATTEND Family Medicine
PROC: 10E0XZZ Delivery of Products of Conception, External Approach (ICD-10-PCS; principal; 2020-11-12)
PROC: 3E033VJ Introduction of Other Hormone into Peripheral Vein, Percutaneous Approach (ICD-10-PCS; 2020-11-12)
DX: O14.14 Severe pre-eclampsia complicating childbirth (principal); Z37.0 Single live birth; Z3A.37 37 weeks gestation of pregnancy; O62.3 Precipitate labor; O99.824 Streptococcus B carrier state complicating childbirth
CPT/HCPCS: 36415; 80053; 82570; 83615; 84156; 84550; 85025; 86850; 86900; 86901

== ENCOUNTER 2022-04-15 03:06 | Emergency (ER) | payer MEDICAID, OTHER ==
[~2022-04-15 03:06] MED LIST changes: +ACET-93 PO; +METO50TA15 PO
--- NOTE | 2022-04-15 03:31 | ED GU-Female ---
General Chief Complaint: OB < 20 WEEKS Stated Complaint: ,PT UNSURE HOW FAR ALONG,BLEEDING Source: patient History of Present Illness Date Seen by Provider: Apr 15, 2022 Time Seen by Provider: 03:18 Initial Comments PT ARRIVES VIA POV FROM HOME PT STATES SHE IS --"DON'T KNOW HOW FAR ALONG" LMP 02/17/22. NORMAL. PT IS AB 0 HAD 2 POSITIVE HOME TESTS THIS WEEK BEGAN TO HAVE BLEEDING AND CRAMPING AT NOON ON Sunday04/12/22 WENT TO [facility] YESTERDAY 04/14/22 AND HAD POSITIVE TEST THERE WELL, NO OTHER TESTS WERE DONE AT THAT TIME. LATER STATES SHE WENT BACK TODAY FOR LAB TESTS, BUT WAS TOLD THOSE RESULTS WOULD NOT BE BACK FOR A FEW DAYS ( HOLIDAY WEEKEND) PT HAS USED 4 "PADS" TODAY--STATES SHE HAS BEEN USING HER SON'S DIAPERS FOR PADS STATES BLEEDING IS SIMILAR TO A NORMAL PERIOD. LAST DELIVERY 11/2020. PT HAS NOT BEEN ON ANY CONTROL, AND PT IS NOT NO DIZZINESS NO NAUSEA/VOMITING NO URINARY SYMPTOMS PCP:DR. MESSER, [facility] Allergies and Home Medications Allergies Coded Allergies: No Known Drug Allergies (Unverified , 01/27/14) Patient Home Medication List Home Medication List Reviewed: Yes Acetaminophen (Acetaminophen) 500 Mg Tablet, 1,000 MG PO Q8HR PRN for CRAMPS Prescribed by: STIVEN SHEPARD on 11/16/20 1137 Metoprolol Tartrate (Metoprolol Tartrate) 50 Mg Tablet, 50 MG PO BID Prescribed by: STIVEN SHEPARD on 11/16/20 1137 Vit #76/Iron,Carb/FA (Pnv 29-1 Tablet) 1 Each Tablet, 1 EACH PO DAILY, (Reported) Entered as Reported by: SEVERO HART on 05/12/15 0019 Review of Systems Review of Systems Constitutional: no symptoms reported Respiratory: no symptoms reported Cardiovascular: no symptoms reported Gastrointestinal: no symptoms reported Genitourinary: see HPI : Yes LMP: Feb 17, 2022 Musculoskeletal: no symptoms reported Skin: no symptoms reported Psychiatric/Neurological: No Symptoms Reported Past Yjylaxk-Ugmton-Wyaznp Hx Patient Social History Tobacco Use?: No Use of E-Cig and/or Vaping dev: No Substance use?: No Alcohol Use?: No Pt feels they are or have been: No Immunizations Up To Date Tetanus Booster (TDap): Less than 5yrs Influenza Vaccine Up-to-Date: No; Not Current Second COVID19 Vaccination Claudio: UNKNOWN COVID19 Vaccine Saw Superintendent: Plum Baby Seasonal Allergies Seasonal Allergies: No Past Medical History Surgeries: No Respiratory: No Asthma Currently Using CPAP: No Currently Using BIPAP: No Cardiac: No Neurological: No : Yes Hx : 6 Hx Para: 5 Hx Total # of Abortions (Sp): 0 Reproductive Disorders: No Sexually Transmitted Disease: No HIV/AIDS: No Genitourinary: No Gastrointestinal: No Musculoskeletal: No Endocrine: No HEENT: No Cancer: No Psychosocial: No Integumentary: No Blood Disorders: No Adverse Reaction/Blood Tranf: No Family Medical History Diabetes mellitus (Mother) Hypertension (Mother) Physical Exam Vital Signs Vital Signs - First Documented 04/15/22 03:16 Temp 36.7 Pulse 72 Resp 16 B/P (MAP) 148/87 (107) Pulse Ox 98 O2 Delivery Room Air Capillary Refill : Height, Weight, BMI Height: 5'0.00" Weight: 185lbs. 4.0oz. [id number]; 37.22 BMI Method:Stated General Appearance: WD/WN, no apparent distress, other (SMILING, TALKATIVE, DOES NOT APPEAR TO BE IN ANY DISCOMFORT OR DISTRESS. WALKS UPRIGHT AND MOVES WITHOUT DIFFICULTY) Cardiovascular: regular rate, rhythm Respiratory: normal breath sounds Gastrointestinal: non tender, soft Pelvic: normal external exam, normal adnexa, no cerv. motion tender, no masses; No discharge, No lesions, No mass, No tender w/ cervical motion, No tender adnexa, No tender uterus; vaginal bleeding (MILD TO MODERATE AMOUNT OF BLOOD IN CANAL-SIMILAR TO LIGHT TO NORMAL PERIOD. NO CLOTS, CERVIX IS CLOSED. ), other (CERVIX IS CLOSED. ) Back: no CVA tenderness Extremities: normal inspection, normal capillary refill Neurologic/Psychiatric: no motor/sensory deficits, alert, normal mood/affect, oriented x 3 Skin: normal color (PT IS DARK SKINNED), warm/dry Progress/Results/Core Measures Suspected Sepsis SIRS Temperature: Pulse: Respiratory Rate: Laboratory Tests 04/15/22 03:54: White Blood Count 12.2H Blood Pressure / Mean: Laboratory Tests 04/15/22 03:54: Platelet Count 322 Results/Orders Lab Results Laboratory Tests Test 04/15/22 03:54 Range/Units White Blood Count 12.2 H 4.3-11.0 10^3/uL Red Blood Count 4.56 3.80-5.11 10^6/uL Hemoglobin 12.2 11.5-16.0 g/dL Hematocrit 38 35-52 % Mean Corpuscular Volume 83 80-99 fL Mean Corpuscular Hemoglobin 27 25-34 pg Mean Corpuscular Hemoglobin Concent 32 32-36 g/dL Red Cell Distribution Width 12.8 10.0-14.5 % Platelet Count 322 130-400 10^3/uL Mean Platelet Volume 10.0 9.0-12.2 fL Immature Granulocyte % (Auto) 0 % Neutrophils (%) (Auto) 64 42-75 % Lymphocytes (%) (Auto) 27 12-44 % Monocytes (%) (Auto) 6 0-12 % Eosinophils (%) (Auto) 2 0-10 % Basophils (%) (Auto) 0 0-10 % Neutrophils # (Auto) 7.8 1.8-7.8 10^3/uL Lymphocytes # (Auto) 3.3 1.0-4.0 10^3/uL Monocytes # (Auto) 0.7 0.0-1.0 10^3/uL Eosinophils # (Auto) 0.3 0.0-0.3 10^3/uL Basophils # (Auto) 0.0 0.0-0.1 10^3/uL Immature Granulocyte # (Auto) 0.0 0.0-0.1 10^3/uL Human Chorionic Gonadotropin, Quant 5464 H <5 MIU/ML My Orders Orders - CHON AG DO Cbc With Automated Diff (04/15/22 03:22) Hcg,Quantitative (04/15/22 03:22) Vital Signs/I&O Capillary Refill : Progress Note : Progress Note NO ULTRASOUND IS AVAILABLE AT THIS HOUR. NO TENDERNESS AT ALL ON EXAM, AND PT IS NOT HAVING ANY PAIN AT THIS TIME, AND NO PAIN AT ANY TIME DURING ER STAY PT DID NOT GO THROUGH /SATURATE ANY PADS DURING ER STAY--STATES BLEEDING IS SLOWING DOWN. NO DETERIORATION IN PT'S CONDITION DURING ER STAY BLOOD TYPE IS O+, PER PREVIOUS RECORDS RETURN PRECAUTIONS DISCUSSED AND STRESSED IMPORTANCE OF FOLLOW UP WITH [facility] TOMORROW FOR RECHECK Departure Impression Primary Impression: Threatened miscarriage in early Disposition: 01 HOME, SELF-CARE Condition: Stable Departure-Patient Inst. Referrals: RAD MESSER MD (PCP/Family) Primary Care Physician Patient Instructions: Bleeding in Early ED Add. Discharge Instructions: NOTHING IN VAGINA--NO TAMPONS, DOUCHING OR INTERCOURSE KEEP AN ACCURATE PAD COUNT--RETURN TO ER IF YOU ARE SATURATING MORE THAN 1 MAXI PAD AN HOUR TYLENOL NEEDED FOR PAIN FOLLOW UP WITH [facility] TOMORROW FOR FURTHER CARE RETURN TO ER IF WORSE All discharge instructions reviewed with patient and/or family. Voiced understanding. CHON AG DO Apr 15, 2022 03:31
[2022-04-15 04:01] LABS: BASOPHILS % (AUTO) 0 % (0-10); EOSINOPHILS # (AUTO) 0.3 10^3/uL (0.0-0.3); EOSINOPHILS % (AUTO) 2 % (0-10); HEMATOCRIT 38 % (35-52); HEMOGLOBIN 12.2 g/dL (11.5-16.0); LYMPHOCYTES # (AUTO) 3.3 10^3/uL (1.0-4.0); LYMPHOCYTES % (AUTO) 27 % (12-44); MEAN CORPUSCULAR HEMOGLOBIN 27 pg (25-34); MEAN CORPUSCULAR HGB CONC 32 g/dL (32-36); MEAN CORPUSCULAR VOLUME 83 fL (80-99); MONOCYTES # (AUTO) 0.7 10^3/uL (0.0-1.0); MONOCYTES % (AUTO) 6 % (0-12); NEUTROPHILS # (AUTO) 7.8 10^3/uL (1.8-7.8); NEUTROPHILS % (AUTO) 64 % (42-75); PLATELET COUNT 322 10^3/uL (130-400); WHITE BLOOD COUNT 12.2 10^3/uL (4.3-11.0)
[2022-04-15 04:58] VITALS: BP 148/87
== END 2022-04-15 05:03 | disposition home or self-care (01) ==
LOC: EDUNIT# 03:06 → ER 03:10
DX: O20.0 Threatened abortion (principal); Z3A.00 Weeks of gestation of pregnancy not specified
CPT/HCPCS: 36415; 84702; 85025; 99282